=== PATIENT | female | born 1955 | race Caucasian/White ===

== ENCOUNTER 2020-07-08 10:26 | Outpatient (REF) | payer BC, SELFPAY | END 2020-07-08 10:27 | disposition home or self-care (01) | LOC: HO.LAB 10:26 | PROVIDERS: Visit Provider Nurse Practitioner Family | DX: Z20.828 Contact with and (suspected) exposure to other viral communicable diseases (principal); R53.83 Other fatigue; R51.9 Headache, unspecified | CPT/HCPCS: U0003 ==

== ENCOUNTER 2020-09-05 09:48 | Outpatient (REF) | payer BC, SELFPAY ==
[2020-09-05 11:12] LABS: Alanine Aminotransferase 22 U/L (0-31); Anion Gap 10 (12-20); Aspartate Amino Transferase 24 U/L (5-31); Blood Urea Nitrogen 10 mg/dL (9-16); Calcium 9.3 mg/dL (8.4-10.2); Carbon Dioxide 31 mmol/L (22-29); Chloride 105 mmol/L (96-108); Cholesterol 234 mg/dL; Estimated Glomerular Filt Rate > 60; Glucose Fasting 94 mg/dL (60-99); HDL Cholesterol 57 mg/dL; LDL Cholesterol Calculated 144 mg/dl; Potassium 4.2 mmol/L (3.3-5.1); Sodium 142 mmol/L (135-145); Triglycerides 168 mg/dL
[2020-09-05 11:28] LABS: Thyroid Stimulating Hormone 18.19 uIU/mL (0.32-4.0); Vitamin D 25-OH Total 36.5 ng/mL (>30)
[2020-09-07 17:32] LABS: Thyroid Peroxidase Antibodies 627 IU/mL (<9)
== END 2020-09-05 09:49 | disposition home or self-care (01) ==
LOC: HO.LAB 09:48
PROVIDERS: PCP Internal Medicine; Visit Provider Internal Medicine
DX: E03.9 Hypothyroidism, unspecified (principal); E78.5 Hyperlipidemia, unspecified; I10 Essential (primary) hypertension; Z78.0 Asymptomatic menopausal state
CPT/HCPCS: 36415; 80048; 80061; 82306; 84439; 84443; 84450; 84460; 86376

== ENCOUNTER 2020-09-08 14:11 | Outpatient (REF) | payer BC, SELFPAY ==
[2020-09-11 05:02] LABS: HPV mRNA E6/E7 rflx Not Detected (Not Detected)
== END 2020-09-08 14:12 | disposition home or self-care (01) ==
LOC: HO.LNP 14:11
PROVIDERS: Visit Provider Internal Medicine
DX: Z12.4 Encounter for screening for malignant neoplasm of cervix (principal); Z11.51 Encounter for screening for human papillomavirus (HPV)
CPT/HCPCS: 87624; 88142

== ENCOUNTER 2020-09-14 16:00 | Emergency (ER) | payer BC, SELFPAY ==
[2020-09-14 16:09] VITALS: BP 145/82; PULSE 91; RESP 18; TEMP 36.4; O2SAT 98; BMI 26.3
== END 2020-09-14 19:54 | disposition left against medical advice (07) ==
PROVIDERS: Emergency Provider Emergency Medicine; PCP Internal Medicine
DX: S09.90XA Unspecified injury of head, initial encounter (principal); W00.0XXA Fall on same level due to ice and snow, initial encounter; Y93.01 Activity, walking, marching and hiking; Y92.014 Private driveway to single-family (private) house as the place of occurrence of the external cause; Y99.9 Unspecified external cause status
CPT/HCPCS: 99282; 99283

== ENCOUNTER → 2020-10-28 12:43 | Outpatient (BNVA) | payer BC, SELFPAY | PROVIDERS: PCP Internal Medicine; Visit Provider Physician Assistant ==

== ENCOUNTER 2020-11-21 10:39 | Outpatient (REF) | payer BC, SELFPAY ==
--- NOTE | ~2020-11-21 | MM_ITS ---
EXAMINATION: MM SCREENING DIGITAL BREAST TOMOSYNTHESIS, BILATERAL CLINICAL INFORMATION: Screening. Asymptomatic. The lifetime risk of breast cancer based on the Tyrer-Cuzick Model is 15%. COMPARISON: Mammography: 09/23/2017, 04/30/2016, 04/04/2015, 08/26/2013 TECHNIQUE: Digital breast tomosynthesis is performed in both the craniocaudal and mediolateral oblique views along with computer-aided detection (CAD). Synthesized 2D images are generated from the tomosynthesis. FINDINGS: There are scattered areas of fibroglandular density (ACR BI-RADS breast composition Category b). Right breast parenchymal pattern is similar to prior studies. No developing density or interval mass or architectural abnormality. The breast shows abnormal calcifications. The axilla and skin contours are unremarkable. Left breast has scattered asymmetries central and posterior upper breast on MLO view and posterior outer breast on CC view. This may represent shifting fibroglandular densities or summation artifact. Patient will be recalled for additional imaging. MM/MM tomosynthesis screening BI IMPRESSION: 1. Left: Asymmetric density central and posterior outer breast, possibly shifting fibroglandular densities or summation artifact. 2. Right: No mammographic evidence of malignancy. ASSESSMENT: BI-RADS 0: Incomplete - Need Additional Imaging Evaluation RECOMMENDATION: 1. Additional views of the left breast (3D spot CC exaggerated CC; 3D spot MLO x 2). 2. Targeted ultrasound if warranted after review of the additional views. 3. Radiology department staff will contact the patient for additional imaging. This patient's information was entered into a reminder system with a target due date for their next mammogram.
== END 2020-11-21 10:40 | disposition home or self-care (01) ==
LOC: HO.MAMMO 10:39
PROVIDERS: Visit Provider Internal Medicine
DX: Z12.31 Encounter for screening mammogram for malignant neoplasm of breast (principal)
CPT/HCPCS: 77063; 77067

== ENCOUNTER 2020-12-04 13:11 | Outpatient (REF) | payer BC, SELFPAY ==
--- NOTE | ~2020-12-04 | MM_ITS ---
EXAMINATION: MM DIAGNOSTIC DIGITAL BREAST TOMOSYNTHESIS, LEFT US BREAST TARGETED, LEFT CLINICAL INFORMATION: Left breast density. COMPARISON: Mammography: 11/21/2020 and studies dating back to June 25. TECHNIQUE: Digital breast tomosynthesis is performed. 2-D images are generated from the tomosynthesis. The following views are obtained: Spot compression craniocaudal and mediolateral oblique images. Targeted left breast ultrasound upper outer aspect. Exaggerated craniocaudal view. FINDINGS: There are scattered areas of fibroglandular density (ACR BI-RADS breast composition Category b). There is persistence of an approximately 7 x 7 mm density without associated suspicious microcalcifications about the upper outer aspect of the left breast. Targeted left breast ultrasound demonstrated at the 2 o'clock position, 7 cm from the nipple, a hypoechoic solid lesion without internal vascularity. Lesion is wider than it is tall. Recommend ultrasound-guided core biopsy. Results are discussed with the patient at time of visit. The above recommendation was called to referring provider's office by breast center navigator. MM/MM tomosynthesis added views L IMPRESSION: Indeterminate solid left breast lesion upper outer aspect for which ultrasound-guided core biopsy is recommended. ASSESSMENT: BI-RADS 4: Suspicious RECOMMENDATION: Ultrasound-guided core biopsy left breast lesion. This patient's information was entered into a reminder system with a target due date for their next mammogram.
--- NOTE | ~2020-12-04 | US_ITS ---
EXAMINATION: US DIAGNOSTIC ULTRASOUND BREAST, LEFT CLINICAL INFORMATION: Left breast density upper outer aspect. COMPARISON: Mammography of same day and studies dating back to August 26, 2013. TECHNIQUE: Ultrasound of the breast is performed with real-time espino scale imaging and color Doppler. FINDINGS: Targeted left breast ultrasound demonstrated at the 2:00 position 7 cm from the nipple a hypoechoic solid lesion without internal vascularity. Lesion is wider than it is tall. Recommend ultrasound-guided core biopsy. Results are discussed with the patient at time of visit. The above recommendation was called to referring provider's office by breast center navigator. US/US breast LT limited IMPRESSION: Indeterminate solid left breast lesion upper outer aspect for which ultrasound-guided core biopsy is recommended. ASSESSMENT: BI-RADS 4: Suspicious RECOMMENDATION: Ultrasound-guided core biopsy left breast lesion
== END 2020-12-04 13:12 | disposition home or self-care (01) ==
LOC: HO.MAMMO 13:11
PROVIDERS: Visit Provider Internal Medicine
DX: R92.2 Inconclusive mammogram (principal)
CPT/HCPCS: 76642; 77061; 77065

== ENCOUNTER 2020-12-16 09:27 | Outpatient (REF) | payer BC, SELFPAY ==
--- NOTE | ~2020-12-16 | MM_ITS ---
EXAMINATION: ULTRASOUND GUIDED CORE BIOPSY BREAST, LEFT POST PROCEDURE DIGITAL MAMMOGRAM, LEFT CLINICAL INFORMATION: Macrolobulated nodule upper outer left breast. Core biopsy recommended. Patient notes prior history benign left excisional biopsy upper outer left breast for calcifications. TC score 15%. COMPARISON: Mammography 11/21/2020, 12/04/2020, targeted left breast ultrasound 12/04/2020. FINDINGS: Proper informed consent is obtained from the patient after discussion of the procedure, potential risks and complications, and alternatives. Patient was given an opportunity for questions. The patient appeared to understand. The patient consented to the procedure and signed the consent form. GUIDANCE: Ultrasound-guided; aseptic technique. LESION: Macrolobulated hypoechoic nodule just under 1 cm posterior upper outer left breast. APPROACH: Oblique lateral medial. ANESTHESIA: 10 mL 1% lidocaine. DERMATOTOMY: Single skin ed dermatotomy performed. NEEDLE: 14-gauge Achieve core biopsy device with 13.5-gauge co-axial guide needle. CORES: 6. CLIP: HydroMARK; shape: butterfly. POST PROCEDURE UNILATERAL DIGITAL MAMMOGRAM: The post biopsy mammogram is performed in separate room using separate digital mammography equipment from the biopsy procedure. CC and ML views are obtained. There are scattered areas of fibroglandular density (breast composition category: b). The clip marker is in position. No gross hematoma. The patient tolerated the procedure well. No immediate complications. Home instructions reviewed with the patient. Final pathology results are pending. MM/MM diagnostic mammo unilat LT IMPRESSION: 1. Status post ultrasound-guided core biopsy left breast. 2. Clip placed: HydroMARK; shape: butterfly. 3. Pathology pending. An addendum report will be issued.
== END 2020-12-16 09:28 | disposition home or self-care (01) ==
LOC: HO.MAMMO 09:27
PROVIDERS: Visit Provider Surgery
DX: R92.8 Other abnormal and inconclusive findings on diagnostic imaging of breast (principal); Z79.899 Other long term (current) drug therapy; Z80.3 Family history of malignant neoplasm of breast
CPT/HCPCS: 19083; 77065; 88305

== ENCOUNTER 2021-09-11 08:56 | Outpatient (REF) | payer BC, SELFPAY ==
[2021-09-11 11:29] LABS: Alanine Aminotransferase 31 U/L (0-31); Anion Gap 10 (12-20); Aspartate Amino Transferase 26 U/L (5-31); Blood Urea Nitrogen 10 mg/dL (9-16); Calcium 9.6 mg/dL (8.4-10.2); Carbon Dioxide 30 mmol/L (22-29); Chloride 106 mmol/L (96-108); Cholesterol 232 mg/dL; Estimated Glomerular Filt Rate > 60; Glucose Fasting 96 mg/dL (60-99); HDL Cholesterol 52 mg/dL; LDL Cholesterol Calculated 157 mg/dl; Sodium 142 mmol/L (135-145); Triglycerides 117 mg/dL
[2021-09-11 11:51] LABS: Free T4 (Free Thyroxine) 0.97 ng/dL (0.71-1.85); Thyroid Stimulating Hormone 18.41 uIU/mL (0.32-4.0); Vitamin D 25-OH Total 31.4 ng/mL (>30)
== END 2021-09-11 08:57 | disposition home or self-care (01) ==
LOC: HO.HMGCLDS 08:56
PROVIDERS: Visit Provider Internal Medicine
DX: Z00.01 Encounter for general adult medical examination with abnormal findings (principal); E03.9 Hypothyroidism, unspecified; E78.5 Hyperlipidemia, unspecified; Z78.0 Asymptomatic menopausal state
CPT/HCPCS: 36415; 80048; 80061; 82306; 84439; 84443; 84450; 84460

== ENCOUNTER 2022-01-15 09:17 | Outpatient (REF) | payer BC, SELFPAY ==
[2022-01-15 11:49] LABS: Alanine Aminotransferase 27 U/L (0-31); Anion Gap 12 (12-20); Aspartate Amino Transferase 25 U/L (5-31); Blood Urea Nitrogen 11 mg/dL (9-16); Calcium 9.4 mg/dL (8.4-10.2); Carbon Dioxide 28 mmol/L (22-29); Chloride 106 mmol/L (96-108); Cholesterol 199 mg/dL; Estimated Glomerular Filt Rate > 60; Glucose Fasting 98 mg/dL (60-99); HDL Cholesterol 58 mg/dL; LDL Cholesterol Calculated 123 mg/dl; Sodium 142 mmol/L (135-145); Triglycerides 93 mg/dL
[2022-01-15 12:14] LABS: Free T4 (Free Thyroxine) 0.93 ng/dL (0.71-1.85); Thyroid Stimulating Hormone 23.27 uIU/mL (0.32-4.0); Vitamin D 25-OH Total 36.4 ng/mL (>30)
== END 2022-01-15 09:18 | disposition home or self-care (01) ==
LOC: HO.HMGCLDS 09:17
PROVIDERS: PCP Internal Medicine; Visit Provider Internal Medicine
DX: E78.5 Hyperlipidemia, unspecified (principal); E03.9 Hypothyroidism, unspecified; Z78.0 Asymptomatic menopausal state
CPT/HCPCS: 36415; 80048; 80061; 82306; 84439; 84443; 84450; 84460

== ENCOUNTER 2022-04-02 08:28 | Outpatient (REF) | payer BC, SELFPAY ==
--- NOTE | ~2022-04-02 | MM_ITS ---
EXAMINATION: MM SCREENING DIGITAL BREAST TOMOSYNTHESIS, BILATERAL CLINICAL INFORMATION: Screening. Asymptomatic. Benign left ultrasound guided core biopsy 12/16/2020 (fibroadenoma, usual ductal hyperplasia. No atypia). The lifetime risk of breast cancer based on the Tyrer-Cuzick Model is 17%. COMPARISON: Mammography: 12/16/2020, 12/04/2020, 11/21/2020, 09/23/2017. Ultrasound core biopsy 12/16/2020, targeted left breast ultrasound 12/04/2020 TECHNIQUE: Digital breast tomosynthesis is performed in both the craniocaudal and mediolateral oblique views along with computer-aided detection (CAD). Synthesized 2D images are generated from the tomosynthesis. FINDINGS: There are scattered areas of fibroglandular density (ACR BI-RADS breast composition Category b). There is biopsy clip marker overlying fibroadenoma posterior upper outer left breast. Some tightly arranged punctate calcifications central left breast are now slightly coarser, likely additional fibroadenomas changes. The axilla and skin contours are unremarkable. No significant changes. MM/MM tomosynthesis screening BI IMPRESSION: No mammographic evidence of malignancy. ASSESSMENT: BI-RADS 2: Benign RECOMMENDATION: Routine annual mammography screening. This patient's information was entered into a reminder system with a target due date for their next mammogram.
== END 2022-04-02 08:29 | disposition home or self-care (01) ==
LOC: HO.MAMMO 08:28
PROVIDERS: Visit Provider Internal Medicine
DX: Z12.31 Encounter for screening mammogram for malignant neoplasm of breast (principal)
CPT/HCPCS: 77063; 77067

== ENCOUNTER 2022-09-03 10:52 | Outpatient (REF) | payer BC, SELFPAY ==
[2022-09-03 14:35] LABS: Free T4 (Free Thyroxine) 0.87 ng/dL (0.71-1.85); Thyroid Stimulating Hormone 15.97 uIU/mL (0.32-4.0)
== END 2022-09-03 10:53 | disposition home or self-care (01) ==
LOC: HO.HMGCLDS 10:52
PROVIDERS: PCP Internal Medicine; Visit Provider Internal Medicine
DX: E03.9 Hypothyroidism, unspecified (principal)
CPT/HCPCS: 36415; 84439; 84443

== ENCOUNTER 2022-09-16 10:26 | Outpatient (AMB) | payer BC, SELFPAY ==
--- NOTE | 2022-09-16 10:53 | MHC.PC.OV ---
Vital Signs 09/16/22 11:19 Height 5 ft 6.5 in Weight 158 lb 4 oz BMI 25.1 BP 120/82 Blood Pressure Location Lt brachial Position Sitting Pulse 93 Pulse Source Pulse Oximeter Pulse Oximetry (%) 99 Oxygen Delivery Method Room Air Intake Visit Reasons: Annual PE, overdue for colonoscopy Intake Note: Pt is here today for her PE: also pt need refills on levothyroxine lovastatin to [facility] Allergies azithromycin [From ZITHROMAX] Allergy (Unknown, Verified 09/20/23 02:57) HIVES, severe hives pravastatin Allergy (Unknown, Verified 09/20/23 02:57) hives atorvastatin Adverse Reaction (Unknown, Verified 09/20/23 02:57) muscle cramps Medication List - Last Reconciled 09/16/22 by Arely Lieberman MD acetaminophen ER (Tylenol 8 Hour) 650 mg PO Q12H aspirin (Adult Low Dose Aspirin) 81 mg PO DAILY fexofenadine (Wal-[employer]ex Allergy) 60 mg PO Q12H levothyroxine 88 mcg PO DAILY lovastatin 20 mg PO BEDTIME multivitamin (Daily Multi-Vitamin tablet) 1 tab PO DAILY [Vitamin D3 PO DAILY] Tobacco use date assessed: 09/09/21 HPI Annual PE, overdue for colonoscopy HPI Details 66-year-old lady here today for physical exam. She has acquired hypothyroidism currently on levothyroxine with latest TSH elevated and free T4 within normal limits. Currently feels more tired than usual. She is up-to-date with her screening mammogram, last done 03/2022 , and is due for a screening colonoscopy, last done in 2011 . She however does not want to get procedure done , wants to do Cologuard test . 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 Has recurrent pain and stiffness in both shoulders , knees , fingers Laboratory Tests 09/03/22 11:14 TSH 15.97 H Free T4 0.87 PFSH Medical History (Updated 09/20/23 @ 03:19 by Arely Lieberman MD) Polyarthralgia Varicose veins of both lower extremities with pain Shingles rash Family history of breast cancer Acromioclavicular pain Postmenopause Colon cancer screening Dyslipidemia Acquired hypothyroidism Periorbital cellulitis Surgical History H/O colonoscopy History of breast biopsy Hx of cholecystectomy History of appendectomy Family History Father Chronic heart disease COPD (chronic obstructive pulmonary disease) Restrictive lung disease Afib CAD (coronary artery disease) Diabetes mellitus Mother Type 2 diabetes mellitus Arthritis Breast cancer Cervical cancer Glaucoma CAD (coronary artery disease) Brother Parkinson disease Sister Non Hodgkin's lymphoma Uterine cancer, Onset Age: 56 Sister No problems noted. Daughter No problems noted. Daughter No problems noted. Sister Breast cancer Social History Household Members: None Housing Other:: mobile home Alcohol intake: current Alcohol intake frequency: holidays/special occasions only Patient Tobacco Use Status: Never used Tobacco e-Cigarette/Vaping Use: Never Used service: No Current occupational status: employed Female Reproductive History Menstrual Age of Menarche: 13 Date of last pap smear: 09/08/20 Questionnaire PHQ-9 Over the last 2 weeks, how often have you been bothered by any of the following problems? 1. Little interest or pleasure in doing things: not at all 2. Feeling down, depressed, or hopeless: not at all 3. Trouble falling or staying asleep, or sleeping too much: more than half the days 4. Feeling tired or having little energy: nearly every day 5. Poor appetite or overeating: not at all 6. Feeling bad about yourself - or that you are a failure or have let yourself or your family down: not at all 7. Trouble concentrating on things, such as reading the newspaper or watching television: not at all 8. Moving or speaking so slowly that other people could have noticed. Or the opposite - being so fidgety or restless that you have been moving around a lot more than usual: not at all 9. Thoughts that you would be better off or of hurting yourself in some way: not at all Total score: 5 Depression Screening Interpretation: Negative 18992 - PHQ-9 Billing: Yes Source: Developed by Drs. Sky Waterman, Elsa Arevalo, Harinder William and colleagues, with an educational yajaira from [employer]. Thrive Questionnaire Declines Thrive assessment: No Date Thrive assessed: 09/16/22 I am a: Patient What is your living situation today?: I have a steady place to live Within the past 12 months, did the food you bought not last and you didn't have the money to get more?: Never true Within the past 12 months, did you worry whether your food would run out before you got money to buy more?: Never true Do you have trouble paying for medicines?: No Do you have trouble getting transportation to medical appointments?: Yes Do you have trouble paying your heating and electricity bill?: Yes Do you have trouble taking care of your child, family member or friend?: No Do you have trouble with day-to-day activities such as bathing, preparing meals, shopping, managing finances, etc.?: No Are you currently unemployed and looking for a job?: No Are you interested in more education?: No AUDIT C Alcohol Use Questionnaire (AUDIT-C) 1. How often do you have a drink containing alcohol?: Never Total Score: 0 JIM-7 AMB Questionnaire JIM-7 Date JIM - 7 assessed: 09/16/22 Feeling nervous, anxious, or on edge: 2 = More than half the days Not being able to stop or control worryin = Not at all Worrying too much about different things: 0 = Not at all Trouble relaxin = Several days Being so restless that it is hard to sit still: 0 = Not at all Becoming easily annoyed or irritable: 1 = Several days Feeling afraid as if something awful might happen: 0 = Not at all Total JIM-7 score (0-4 normal; 5-9 mild; 10-14 moderate; 15-21 severe): 4 Source: Developed by Drs. Sky Waterman, Elsa Arevalo, Harinder William and colleagues, with an educational yajaira from [employer]. JIM-7 Assessment Billing JIM-7 Assessment Tool: JIM-7 Assessment 12583 Review of Systems Const Denies fatigue, Denies fever(s), Denies headache(s) and Denies weakness Eyes Denies change in vision, Denies eye discharge and Denies itchy eyes ENT Denies dizziness, Denies headache(s), Denies nasal congestion, Denies nasal discharge and Denies sore throat Card Denies chest pain, Denies lightheadedness, Denies palpitations and Denies dyspnea Resp Denies chest congestion, Denies cough, Denies dyspnea and Denies wheezing GI Denies abdominal pain, Denies change in bowel habits and Denies heartburn Denies urinary frequency, Denies dysuria and Denies urinary urgency Musc Reports as per HPI and Denies joint swelling Skin/Breast Denies lesions and Denies rash Neuro Denies dizziness, Denies headache(s) and Denies weakness Psych Reports no additional complaints Endo Denies fatigue, Denies polydipsia, Denies polyuria and Denies palpitations Dick/Lymph Denies easy bruising Aller/Immun Denies itchy eyes, Denies seasonal rhinorrhea and Denies wheezing Physical exam (Primary Care) Vital Signs: Last Vital Signs Pulse 93 09/16/22 11:19 BP 120/82 09/16/22 11:19 Pulse Ox 99 09/16/22 11:19 Oxygen Delivery Method Room Air 09/16/22 11:19 BMI result Body Mass Index 25.1 Tobacco/Smoking Status: Tobacco use Status Tobacco use date assessed 09/09/21 09/16/22 10:55 Patient Tobacco Use Status Never used Tobacco 09/16/22 10:55 e-Cigarette/Vaping Use Never Used 09/16/22 10:55 PHQ-9: PHQ-9 Score PHQ-9: Total score 7 09/16/22 12:24 Depression Screening Interpretation: Negative Thrive Assessment: Date of Thrive Assessment Date Thrive assessed 09/16/22 09/16/22 11:21 Const General: cooperative, healthy appearing and no acute distress Nutritional Appearance: average body habitus Orientation/consciousness: patient oriented x3 Limitations: no limitations HENMT Head: Yes atraumatic Ears: external ears normal and TM's normal bilaterally General nose exam: Normal external nose present and No nasal discharge present Face and sinus: Yes face symmetric Mouth: Normal oral and palatal mucosa present, oropharynx normal and moist mucous membranes Eyes General: appearance normal, both eyes and all related structures Neck Neck: Yes full ROM, Yes no lymphadenopathy and Yes supple Chest Breast/axilla inspection: normal inspection of the breasts Breast/axilla palpation: normal palpation of the breasts Resp Effort & Inspection: normal respiratory effort and able to speak in complete sentences Auscultation: clear to auscultation bilaterally Cardio Palpation: normal PMI Rate: regular rate Rhythm: regular rhythm Heart sounds: S1 normal heart sound present and S2 normal heart sound present GI Inspection: Yes normal to inspection Palpation (GI): Soft to palpation, nontender and no guarding Auscultation: normal bowel sounds Back/Spine/Pelvis Back: No back tenderness Skin Other: Superficial varicosities on lateral aspects of both knees Neuro General: patient oriented x3, gait normal, moves all extremities, Normal light touch and pain sensation, no focal motor deficits and CN's II-XI intact bilaterally Extrem General: Yes full ROM, Yes no joint enlargement, Yes no calf tenderness and Yes normal gait Psych Appearance: grossly normal and well kempt Mental Status: mental status grossly normal Speech and movement: Normal speech and movement present Affect: normal affect Attitude: cooperative Thought process: Normal thought process present Thought content: Normal thought content present Immunizations pneumoc 20-malcolm conj-dip cr(PF) 0.5 mL IM syringe Performing Provider: Arely Lieberman MD Performing Location: [facility] Administered by: Aniya Alex CMA on 09/16/22 12:23 Dose Route Admin Location Dispensed Lot Number Expiration Date NDC Administrative Operations Coordinator 0.5 mL IM Left Deltoid 0.5 mL [id number] 11/21/23 7653-8772-52 [employer] VIS Given Date VIS Provided VIS Publication Date 09/16/22 Single Vaccine 21 Eligibility Eligibility Date Funding Source Not [facility] Eligible 09/16/22 Private Assessment and Plan Assessment & Plan (1) Annual visit for general adult medical examination with abnormal findings: Code(s): Z00.01 - Encounter for general adult medical examination with abnormal findings Plan: Will check appropriate labs. Recommended dental visit every 6 months and regular eye exams, at least every 2 years. Take adequate calcium in diet and vitamin-D 3 at 2000 IU per cap once a day, in addition to weight-bearing exercises to help maintain good muscle tone and weight control. Instructed to do self-breast exam, and recommended to continue with yearly mammogram,, bone density scan ordered.. Prevnar 20 given today (2) Acquired hypothyroidism: Code(s): E03.9 - Hypothyroidism, unspecified Plan: Increased dose of levothyroxine to 100 mcg daily. Repeat another TSH and free T4 in 2 month (3) Colon cancer screening: Code(s): Z12.11 - Encounter for screening for malignant neoplasm of colon Plan: Cologuard ordered, patient does not want to do colonoscopy procedure (4) Dyslipidemia: Code(s): E78.5 - Hyperlipidemia, unspecified Plan: Fasting lipid panel ordered, currently on lovastatin 20 mg daily at bedtime (5) Varicose veins of both lower extremities with pain: Code(s): I83.813 - Varicose veins of bilateral lower extremities with pain Plan: Referred to vascular surgery for consultation. Advised to try wearing compression stockings specially when not work (6) Polyarthralgia: Code(s): M25.50 - Pain in unspecified joint Plan: Take Tylenol arthritis 650 mg per tablet to take 1 every 8 hours as needed for joint pain (7) Family history of breast cancer: Comment: Her mother was diagnosed to have breast cancer at the age of 49. I am going to recommend her to undergo genetic testing. This will be discussed on her follow-up visit. Code(s): Z80.3 - Family history of malignant neoplasm of breast Plan: Continue with regular screening mammograms and regular breast exam. Orders: Orders Aspartate Amino Transferase 2 Months E78.5 - Hyperlipidemia, unspecified, E03.9 - Hypothyroidism, unspecified Free T4 (Free Thyroxine) 2 Months E03.9 - Hypothyroidism, unspecified, E78.5 - Hyperlipidemia, unspecified XR DEXA axial skeleton 09/16/22 N95.1 - Menopausal and female climacteric states Alanine Aminotransferase 2 Months E78.5 - Hyperlipidemia, unspecified, E03.9 - Hypothyroidism, unspecified Lipid Panel 2 Months E78.5 - Hyperlipidemia, unspecified, E03.9 - Hypothyroidism, unspecified Thyroid Stimulating Hormone 2 Months E78.5 - Hyperlipidemia, unspecified, E03.9 - Hypothyroidism, unspecified Pneumococcal 20 Immunization 09/16/22 Z23 - Encounter for immunization Referrals Vascular Surgery Referral I83.813 - Varicose veins of bilateral lower extremities with pain Medications: Changed From levothyroxine 88 mcg PO DAILY 30 tabs 0RF E03.9 - Hypothyroidism, unspecified To levothyroxine 100 mcg PO DAILY 90 tabs 1RF 90 days E03.9 - Hypothyroidism, unspecified Coding Level of Care Code Est Pt Prev Care >65y(92685) Diagnoses Annual visit for general adult medical examination with abnormal findings Z00.01 Acquired hypothyroidism E03.9 Colon cancer screening Z12.11 Dyslipidemia E78.5 Varicose veins of both lower extremities with pain I83.813 Polyarthralgia M25.50 Family history of breast cancer Z80.3 Additional Codes JIM-7 Assessment Billing - JIM-7 Assessment Tool: JIM-7 Assessment 31904 ([id number])
[2022-09-16 11:19] VITALS: BP 120/82; PULSE 93; O2SAT 99; BMI 25.1
== END 2022-09-16 12:27 | disposition home or self-care (01) ==
LOC: HO.HMGC 10:27
PROVIDERS: PCP Internal Medicine; Visit Provider Internal Medicine
DX: Z00.01 Encounter for general adult medical examination with abnormal findings (principal); E03.9 Hypothyroidism, unspecified; Z12.11 Encounter for screening for malignant neoplasm of colon; E78.5 Hyperlipidemia, unspecified; I83.813 Varicose veins of bilateral lower extremities with pain; M25.50 Pain in unspecified joint; Z80.3 Family history of malignant neoplasm of breast
CPT/HCPCS: 99499

== ENCOUNTER → 2022-11-22 14:56 | Outpatient (BNVA) | payer BC, SELFPAY | PROVIDERS: PCP Internal Medicine; Visit Provider Surgery Vascular Surgery | DX: Z13.89 Encounter for screening for other disorder (principal) ==

== ENCOUNTER 2022-12-06 12:55 | Outpatient (REF) | payer BC, SELFPAY ==
--- NOTE | ~2022-12-06 | US_ITS ---
EXAMINATION: US LOWER EXTREMITY VENOUS (REFLUX EXAM), BILATERAL CLINICAL INDICATION: Chronic venous insufficiency with lower extremity varicose veins and inflammation COMPARISON: None. TECHNIQUE: Color flow triplex imaging and compression Doppler was performed to evaluate both the deep and the superficial systems bilaterally. To evaluate the superficial system, the examination was performed in the upright position. Color-flow Doppler ultrasound and compression ultrasound were utilized. In addition, maneuvers were utilized to demonstrate reflux. FINDINGS: 1. DEEP VENOUS ULTRASOUND OF THE RIGHT LOWER EXTREMITY: Common Femoral Vein: Compressible, normal respiratory variation and augmented flow. Femoral Vein: Compressible, normal color flow and augmentation. Popliteal Vein: Compressible, normal augmentation. Deep Reflux: There is no evidence of reflux in the deep system in either the common femoral vein or the popliteal vein. There is no evidence of a Reed's cyst. 2. SUPERFICIAL ULTRASOUND WITH DOPPLER OF RIGHT LOWER EXTREMITY: GREAT SAPHENOUS VEIN: Saphenofemoral Junction: 0.6 cm; Reflux: 0 ms Proximal Thigh: 0.4 cm; Reflux: 0 ms Mid Thigh: 0.2 cm; Reflux: 0 ms Above Knee: 0.2 cm; Reflux: 0 ms At Knee: 0.2 cm; Reflux: 0 ms Below Knee: 0.2 cm; Reflux: 716 ms Mid Calf: 0.2 cm; Reflux: 0 ms Ankle: 0.2 cm; Reflux: 0 ms DUPLICATED MEDIAL GREAT SAPHENOUS VEIN: Diameter: None Imaged Reflux: NA DUPLICATED LATERAL GREAT SAPHENOUS VEIN: Diameter: 0.4 cm Reflux: None SMALL SAPHENOUS VEIN: Proximal: 0.5 cm; Reflux: 2140 ms Distal: 0.5 cm; Reflux: 2404 ms VEIN OF GIACOMINI: Size: NA Reflux: NA PERFORATORS: Location: Mid thigh, proximal calf and mid calf Size: 0.2 cm Reflux: 1020 ms in the midcalf VARICOSITIES: Location: Proximal and mid calf off the small saphenous vein, lateral of the knee Size: 0.4 cm Reflux: Ranging from 2332 ms to 2496 ms 3. DEEP VENOUS ULTRASOUND OF THE LEFT LOWER EXTREMITY: Common Femoral Vein: Compressible, normal respiratory variation and augmented flow. Femoral Vein: Compressible, normal color flow and augmentation. Popliteal Vein: Compressible, normal augmentation. Deep Reflux: There is no evidence of reflux in the deep system in either the common femoral vein or the popliteal vein. There is no evidence of a Reed's cyst. 4. SUPERFICIAL ULTRASOUND WITH DOPPLER OF LEFT LOWER EXTREMITY: GREAT SAPHENOUS VEIN: Saphenofemoral Junction: 0.6 cm; Reflux: 0 ms Proximal Thigh: 0.7 cm; Reflux: 0 ms Mid Thigh: 0.2 cm; Reflux: 0 ms Above Knee: Not visualized At Knee: 0.5 cm; Reflux: 2536 ms Below Knee: 0.5 cm; Reflux: 2776 ms Mid Calf: 0.3 cm; Reflux: 2464 ms Ankle: 0.3 cm; Reflux: 0 ms DUPLICATED MEDIAL GREAT SAPHENOUS VEIN: Diameter: None Imaged Reflux: NA DUPLICATED LATERAL GREAT SAPHENOUS VEIN: Diameter: None Imaged Reflux: NA SMALL SAPHENOUS VEIN: Proximal: 0.5 cm; Reflux: 2108 ms Distal: 0.3 cm; Reflux: 2264 ms VEIN OF GIACOMINI: Size: NA Reflux: NA PERFORATORS: Location: Proximal thigh to the great saphenous vein Size: 0.2 cm Reflux: 1624 ms VARICOSITIES: Location: Mid thigh off the great saphenous vein extending from the proximal great saphenous vein to below the knee Size: 0.9 cm Reflux: 2228 ms US/US venous duplex LE BI IMPRESSION: Right: Severe reflux in the small saphenous vein with multiple branching varicosities. Left: Severe reflux in the great saphenous vein with large branching varicosities as described above. Severe reflux in the small saphenous vein
[2022-12-06 16:50] LABS: Alanine Aminotransferase 33 U/L (0-31); Aspartate Amino Transferase 26 U/L (5-31); Cholesterol 194 mg/dL; HDL Cholesterol 59 mg/dL; LDL Cholesterol Calculated 115 mg/dl; Triglycerides 100 mg/dL
[2022-12-06 17:22] LABS: Free T4 (Free Thyroxine) 1.13 ng/dL (0.71-1.85); Thyroid Stimulating Hormone 4.18 uIU/mL (0.32-4.0)
== END 2022-12-06 12:56 | disposition home or self-care (01) ==
LOC: HO.US 12:55
PROVIDERS: PCP Internal Medicine; Visit Provider Surgery Vascular Surgery
DX: I83.11 Varicose veins of right lower extremity with inflammation (principal); E03.9 Hypothyroidism, unspecified; E78.5 Hyperlipidemia, unspecified
CPT/HCPCS: 36415; 80061; 84439; 84443; 84450; 84460; 93970

== ENCOUNTER 2023-04-22 10:45 | Outpatient (REF) | payer BC, SELFPAY ==
[2023-04-22 12:15] LABS: Free T4 (Free Thyroxine) 1.07 ng/dL (0.71-1.85); Thyroid Stimulating Hormone 5.69 uIU/mL (0.32-4.0)
== END 2023-04-22 10:46 | disposition home or self-care (01) ==
LOC: HO.LAB 10:45
PROVIDERS: PCP Internal Medicine; Visit Provider Internal Medicine
DX: E03.9 Hypothyroidism, unspecified (principal)
CPT/HCPCS: 36415; 84439; 84443

== ENCOUNTER 2023-05-05 13:40 | Outpatient (REF) | payer BC, SELFPAY ==
--- NOTE | ~2023-05-05 | MM_ITS ---
EXAMINATION: BONE DENSITOMETRY CLINICAL INDICATION: Menopausal and female climacteric states. COMPARISON: Baseline BD dated 06/27/2008. TECHNIQUE: Using a [employer] DXA System (software version: 13.1) manufactured by [employer], dual-energy x-ray absorptiometry was performed of the lumbar spine and left hip. The images are of good technical quality. Summary results are attached. FINDINGS: AP SPINE L1-L4: Current: BMD 1.098 g/cm2, Z-score 0.6, T-score -0.7, normal, 0.9% increase from baseline (<5% change is not significant). Baseline: BMD 1.088 g/cm2. LEFT FEMUR, NECK: Current: BMD 1.030 g/cm2, Z-score 1.3, T-score -0.1, normal. Baseline: BMD 1.077 g/cm2. LEFT FEMUR, TOTAL: Current: BMD 1.097 g/cm2, Z-score 1.7, T-score 0.7, normal, 3.4% decrease from baseline (<5% change is not significant). Baseline: BMD 1.136 g/cm2. IDENTIFIED RISK FACTORS: Low calcium intake. Menopause. HISTORY OF FRACTURE: None listed. MEDICATIONS: Vitamin D. MM/XR DEXA axial skeleton IMPRESSION: 1. DIAGNOSIS: Normal bone density based on the lowest T-score value of -0.7 in the lumbar spine applying World Health Organization criteria. 2. 10-YEAR FRACTURE RISK PREDICTION, FRAX: According to the guidelines, FRAX calculation should only be performed on patients in the osteopenia bone density category.?Therefore, FRAX was not performed on this patient.? 3. Treatment Recommendations: NOF guidelines recommend consideration for treatment in postmenopausal women and men age 50 and older presenting with the following: -A hip or vertebral (clinical or morphometric) fracture. -T-score less than or equal to -2.5 at the femoral neck or spine after appropriate evaluation to exclude secondary causes. -Low bone mass at the hip or spine and a 10-year fracture probability by FRAX of greater than or equal to 3% for hip fracture or greater than or equal to 20% for major osteoporotic fracture based on the [place] adapted WHO algorithm. 4. Other Recommendations: All treatment decisions require clinical judgment and consideration of individual patient factors, including patient preferences, comorbidities, previous drug use, risk factors not captured in the FRAX model (e.g. frailty, falls, vitamin D deficiency, increased bone turnover, interval significant decline in bone density) and possible under or overestimation of fracture risk by FRAX. FUTURE SCAN RECOMMENDATION: People with diagnosed cases of osteoporosis or at high risk for fracture should have regular bone mineral density tests. For patients eligible for Medicare, routine testing is allowed once every 2 years. The testing frequency can be increased to one year for patients who have rapidly progressing disease, those who are receiving or discontinuing medical therapy to restore bone mass, or have additional risk factors.
--- NOTE | ~2023-05-05 | MM_ITS ---
EXAMINATION: MM SCREENING DIGITAL BREAST TOMOSYNTHESIS, BILATERAL CLINICAL INFORMATION: Screening. Asymptomatic. COMPARISON: Mammography: This study is compared with prior exams dating back to 2018. TECHNIQUE: Digital breast tomosynthesis is performed in both the craniocaudal and mediolateral oblique views along with computer-aided detection (CAD). Synthesized 2D images are generated from the tomosynthesis. FINDINGS: There are scattered areas of fibroglandular density (ACR BI-RADS breast composition Category b). There are grouped calcifications in the 6:00 region of the left breast. Additional mammographic imaging magnification of this region is advised. There is a tissue marker in the superior aspect of the left breast from prior percutaneous biopsy. In the right breast, there are no significant masses, abnormal calcifications, or other abnormalities. MM/MM tomosynthesis screening BI IMPRESSION: Groups calcifications of the left breast warrants additional mammographic imaging magnification. Benign findings are also present in the left breast. No mammographic signs of malignancy right breast. ASSESSMENT: BI-RADS BI-RADS 0 - Incomplete: Needs additional Imaging. RECOMMENDATION: Additional views of the left breast Radiology department staff will contact the patient for additional imaging. Additional Imaging required This examination should not preclude the clinical evaluation of a suspicious palpable abnormality. This patient's information was entered into a reminder system with a target due date for their next mammogram.
== END 2023-05-05 13:41 | disposition home or self-care (01) ==
LOC: HO.MAMMO 13:40
PROVIDERS: PCP Internal Medicine; Visit Provider Internal Medicine
DX: Z12.31 Encounter for screening mammogram for malignant neoplasm of breast (principal); Z13.820 Encounter for screening for osteoporosis; Z78.0 Asymptomatic menopausal state
CPT/HCPCS: 77063; 77067; 77080

== ENCOUNTER → 2023-05-05 14:30 | Outpatient (BNV) | payer BC, SELFPAY | PROVIDERS: PCP Internal Medicine; Visit Provider Radiology Diagnostic Radiology | DX: Z12.31 Encounter for screening mammogram for malignant neoplasm of breast (principal) | CPT/HCPCS: 77063; 77067 ==

== ENCOUNTER 2023-07-03 12:26 | Outpatient (REF) | payer BC, SELFPAY ==
--- NOTE | ~2023-07-03 | US_ITS ---
EXAMINATION: MM DIAGNOSTIC DIGITAL BREAST TOMOSYNTHESIS, LEFT US BREAST LIMITED, LEFT MAMMOGRAPHY: CLINICAL INFORMATION: Evaluate calcifications 6:00 axis left breast, posterior one third. Benign left ultrasound guided core biopsy 12/16/2020 (fibroadenoma, usual ductal hyperplasia. No atypia). COMPARISON: Mammography: 05/05/2023, 04/02/2022, 12/16/2020, 12/04/2020, 11/21/2020, 09/23/2017. Ultrasound core biopsy 12/16/2020, targeted left breast ultrasound 12/04/2020 TECHNIQUE: Digital left breast tomosynthesis is performed in the following views: Spot magnification left CC and ML views, as well as 3-D spot compression left CC and MLO views x2. This was followed by ultrasound. FINDINGS: There are scattered areas of fibroglandular density (ACR BI-RADS breast composition Category b). Calcifications in the 6:00 axis of the left breast have a coarse appearance with minimal pleomorphic changes, and are most likely benign. Six-month follow-up recommended. There is a 1.4 cm low density lobular mass versus island of dense parenchyma in the 11:30 o'clock axis of the anterior left breast, which persists on spot compression views, and which will be evaluated with ultrasound. There is a post benign biopsy marker in the lateral left breast posterior one third. ULTRASOUND: CLINICAL INFORMATION: Evaluate possible mass versus prominent island of parenchyma retroareolar 11:30 o'clock left breast. COMPARISON: None TECHNIQUE: Targeted sonographic evaluation was performed using a high frequency linear transducer. Attention paid to the anterior 11:30 o'clock axis of the left breast. Selected archived documentation. FINDINGS: LEFT BREAST: There is a mixture of fatty and fibroglandular tissue. No suspicious mass is seen. There is no pathologic acoustic shadowing. There is no cystic abnormality. There is no ultrasonographic abnormality in the region of concern in the anterior 11:30 o'clock mammogram. This most likely represents a normal island of tissue. US/US breast LT limited mamm only IMPRESSION: There are no findings suspicious for malignancy in the left breast. Small somewhat coarse grouped calcifications 6:00 left breast are probably benign and six-month follow-up recommended to ensure stability, to include standard magnification views. Prominent island of parenchyma in the 11:30 o'clock axis retroareolar left breast, which can be reevaluated at the time of repeat left spot magnification views. OVERALL ASSESSMENT: Mammography: BI-RADS 3 - Probably benign finding(s) - 6 month follow-up suggested Ultrasound: BI-RADS 3 - Probably benign finding(s) - 6 month follow-up suggested RECOMMENDATION: 6 Month F/U This patient's information was entered into a reminder system with a target due date for their next mammogram.
== END 2023-07-03 12:27 | disposition home or self-care (01) ==
LOC: HO.MAMMO 12:26
PROVIDERS: PCP Internal Medicine; Visit Provider Internal Medicine
DX: R92.1 Mammographic calcification found on diagnostic imaging of breast (principal); R92.2 Inconclusive mammogram
CPT/HCPCS: 76642; 77065

== ENCOUNTER → 2023-07-03 13:00 | Outpatient (BNV) | payer BC, SELFPAY | PROVIDERS: PCP Internal Medicine; Visit Provider Radiology Diagnostic Radiology | DX: R92.1 Mammographic calcification found on diagnostic imaging of breast (principal) | CPT/HCPCS: 76642; 77061; 77065 ==

== ENCOUNTER 2023-09-16 10:34 | Outpatient (REF) | payer BC, SELFPAY ==
[2023-09-16 14:27] LABS: Free T4 (Free Thyroxine) 1.06 ng/dL (0.71-1.85); Thyroid Stimulating Hormone 5.06 uIU/mL (0.32-4.0)
== END 2023-09-16 10:35 | disposition home or self-care (01) ==
LOC: HO.HMGCLDS 10:34
PROVIDERS: PCP Internal Medicine; Visit Provider Internal Medicine
DX: E03.9 Hypothyroidism, unspecified (principal)
CPT/HCPCS: 36415; 84439; 84443

== ENCOUNTER 2023-12-06 15:58 | Outpatient (REF) | payer SELFPAY ==
[2023-12-06 18:45] LABS: Free T4 (Free Thyroxine) 1.18 ng/dL (0.71-1.85); Thyroid Stimulating Hormone 3.72 uIU/mL (0.32-4.0)
== END 2023-12-06 15:59 | disposition home or self-care (01) ==
LOC: HO.LAB 15:58
PROVIDERS: PCP Internal Medicine; Visit Provider Internal Medicine
DX: E03.9 Hypothyroidism, unspecified (principal)
CPT/HCPCS: 36415; 84439; 84443

== ENCOUNTER 2024-01-10 10:09 | Outpatient (REF) | payer SELFPAY ==
--- NOTE | ~2024-01-10 | MM_ITS ---
EXAMINATION: MM DIAGNOSTIC DIGITAL BREAST TOMOSYNTHESIS, LEFT CLINICAL INFORMATION: 6 month Follow-up calcs and one view asymmetry 6:00 axis anterior left breast. Benign left ultrasound guided core biopsy 12/16/2020 (fibroadenoma, usual ductal hyperplasia. No atypia). COMPARISON: Mammography: 06/29/2023, 05/05/2023 (BI-RADS 0), 04/02/2022, 12/16/2020, 12/04/2020, 11/21/2020, 09/23/2017. Ultrasound core biopsy 12/16/2020, targeted left breast ultrasound 12/04/2020 TECHNIQUE: Digital breast tomosynthesis is performed in both the craniocaudal and mediolateral oblique views along with computer-aided detection (CAD). Synthesized 2D images are generated from the tomosynthesis. In addition, 2-D spot magnification views left breast in the CC and ML projection were obtained. FINDINGS: There are scattered areas of fibroglandular density (ACR BI-RADS breast composition Category b). Calcifications in the 6:00 axis of the left breast have a coarse appearance with no significant pleomorphic changes, with no new calcifications or aggressive changes. These remain most likely benign. Six-month follow-up diagnostic left breast mammography recommended. The 1.4 cm lobular asymmetry seen in the 11:30 axis of the anterior left breast best seen on the CC view is unchanged from prior exams. Previously this had no ultrasound correlate and is most likely an island of dense fibroglandular tissue. Six-month Follow-up left mammography recommended to ensure stability. No new abnormalities noted left breast. Post benign tissue marker noted in the lateral left breast posterior one third. MM/MM tomosynthesis diagnostic LT IMPRESSION: There are no findings suspicious for malignancy. There are no significant changes from the prior study. - Calcifications in the 6:00 axis of the left breast are unchanged and probably benign. Six-month interval follow-up magnification views recommended. -Lobular asymmetry in the 11:30 o'clock axis of the anterior left breast is also unchanged and probably benign. Six-month interval follow-up mammography with standard views are recommended. ASSESSMENT: BI-RADS BI-RADS 3 - Probably benign finding(s) - 6 month follow-up suggested RECOMMENDATION: 6 Month F/U This patient's information was entered into a reminder system with a target due date for their next mammogram.
[2024-01-10 13:53] LABS: Alanine Aminotransferase 23 U/L (0-31); Aspartate Amino Transferase 24 U/L (5-31); Cholesterol 198 mg/dL (<200); HDL Cholesterol 55 mg/dL (>40); LDL Cholesterol Calculated 123 mg/dL (<100); Triglycerides 101 mg/dL (<150)
[2024-01-10 14:09] LABS: Vitamin D 25-OH Total 51.1 ng/mL (>30)
== END 2024-01-10 10:10 | disposition home or self-care (01) ==
LOC: HO.MAMMO 10:09
PROVIDERS: PCP Internal Medicine; Visit Provider Internal Medicine
DX: E78.5 Hyperlipidemia, unspecified (principal); R92.1 Mammographic calcification found on diagnostic imaging of breast
CPT/HCPCS: 36415; 77061; 77065; 80061; 82306; 84450; 84460

== ENCOUNTER → 2024-01-10 13:30 | Outpatient (BNV) | payer SELFPAY | PROVIDERS: PCP Internal Medicine; Visit Provider Radiology Diagnostic Radiology | DX: R92.1 Mammographic calcification found on diagnostic imaging of breast (principal); N63.22 Unspecified lump in the left breast, upper inner quadrant | CPT/HCPCS: 77061; 77065 ==

== ENCOUNTER 2024-01-26 08:36 | Outpatient (AMB) | payer MEDICARE, SELFPAY ==
--- NOTE | 2024-01-26 09:37 | A.OFFPC_ITS ---
Intake Visit Reasons: TH test results-Android [phone] Allergies azithromycin [From ZITHROMAX] Allergy (Unknown, Verified 01/26/24 10:52) HIVES, severe hives pravastatin Allergy (Unknown, Verified 01/26/24 10:52) hives atorvastatin Adverse Reaction (Unknown, Verified 01/26/24 10:52) muscle cramps Medication List - Last Reconciled 01/26/24 by Arely Lieberman MD acetaminophen ER (Tylenol 8 Hour) 650 mg PO Q12H aspirin (Adult Low Dose Aspirin) 81 mg PO DAILY fexofenadine (Wal-Fex Allergy) 60 mg PO DAILY PRN levothyroxine 88 mcg PO DAILY lovastatin 20 mg PO BEDTIME multivitamin (Daily Multi-Vitamin tablet) 1 tab PO DAILY [Vitamin D3 PO DAILY] Tobacco use date assessed: 09/09/21 HPI TH test results-Android [phone] HPI Details 68-year-old lady with hyperlipidemia, an d hypothyroidism, here today for her follow-up via telehealth. She has been compliant with taking her medications, currently on lovastatin 20 mg at bedtime and levothyroxine 88 mcg taken once a day in a.m. an hour before breakfast. Recent fasting labs showed lipids and thyroid levels were within normal limits. Has been feeling well with no complaints at present time. Patient states that she is retired now and has been able to concentrate on her diet has been cooking a lot of for food and has been exercising regularly. FORMERLY [facility], [facility] Medical History (Updated 01/26/24 @ 10:59 by Arely Lieberman MD) History of shingles Polyarthralgia Varicose veins of both lower extremities with pain Family history of breast cancer Postmenopause Colon cancer screening Dyslipidemia Acquired hypothyroidism Periorbital cellulitis Surgical History H/O colonoscopy History of breast biopsy Hx of cholecystectomy History of appendectomy Family History Father Chronic heart disease COPD (chronic obstructive pulmonary disease) Restrictive lung disease Afib CAD (coronary artery disease) Diabetes mellitus Mother Type 2 diabetes mellitus Arthritis Breast cancer Cervical cancer Glaucoma CAD (coronary artery disease) Brother Parkinson disease Sister Non Hodgkin's lymphoma Uterine cancer, Onset Age: 56 Sister No problems noted. Daughter No problems noted. Daughter No problems noted. Sister Breast cancer Social History Household Members: None Housing Other:: mobile home Alcohol intake: current Alcohol intake frequency: holidays/special occasions only Patient Tobacco Use Status: Never used Tobacco e-Cigarette/Vaping Use: Never Used service: No Current occupational status: employed Female Reproductive History Menstrual Age of Menarche: 13 Questionnaire Thrive Questionnaire Date Thrive assessed: 09/16/22 JIM-7 AMB Questionnaire JIM-7 Date JIM - 7 assessed: 09/16/22 Source: Developed by Drs. Sky Waterman, Elsa Arevalo, Harinder William and colleagues, with an educational yajaira from [employer]. Review of Systems Const Reports as per HPI ENT Reports no additional complaints Card Denies chest pain, Denies chest pain at rest and Denies chest pain with activity Resp Denies chest congestion and Denies cough GI Reports no additional complaints Musc Details: Denies abnormal gait, Denies myalgias, Denies arthralgias, Denies joint swelling, Denies muscle cramps and Reports stiffness Skin/Breast Reports pruritus and Denies wounds Neuro Reports no additional complaints and Denies abnormal gait Psych Denies no additional complaints Endo Reports no additional complaints Physical exam (Primary Care) Tobacco/Smoking Status: Tobacco use Status Tobacco use date assessed 09/09/21 01/26/24 09:39 Patient Tobacco Use Status Never used Tobacco 01/26/24 09:39 e-Cigarette/Vaping Use Never Used 01/26/24 09:39 Thrive Assessment: Date of Thrive Assessment Date Thrive assessed 09/16/22 01/26/24 09:39 Telehealth Telehealth [facility] Location of provider rendering services: practice address Location of patient: address on file Patient Identification confirmed using: Name, : Yes Telehealth method: video Patient verbally consented to treatment: Yes Patient verbally consented to billing insurance company: Yes Patient informed of any privacy concerns related to visit: Yes Minutes spent on Phone/Video with Pt.: 15 Results Reviewed Results Reviewed: Name: Patricia Chaney Age/Sex: 68/F : 1955 Unit#: [id number] Attend Dr: Arely Lieberman MD Re01/10/24 Status: DEP REF Location: [facility] Disch: SPEC : [id number] JESSY: 01/10/24 STATUS: COMP REQ : [id number] RECD: 01/10/24-[address]: Arely Lieberman MD COMP: 01/10/24-1408 ENTERED: 01/10/24-[address]: ORDERED: AST, ALT, Lipid Panel, Vitamin D 25-OH Test Result Flag Reference AST (GOT) 24 5-31 U/L ALT (GPT) 23 0-31 U/L Triglyceride 101 <150 mg/dL Desirable Triglyceride: less than 150 mg/dL Borderline High Triglyceride 150-199 mg/dL High Triglyceride: 200-499 mg/dL Very High Triglyceride: greater than or equal to 5OO mg/dL Cholesterol 198 <200 mg/dL Desirable Cholesterol: less than 200 mg/dL Borderline High Cholesterol: 200-239 mg/dL High Cholesterol: greater than 239 mg/dL LDL Calculated 123 H <100 mg/dL Desirable LDL: less than 100 mg/dL Near Optimal/Above Optimal LDL: 110-129 mg/dL Borderline High LDL: 130-159 mg/dL High LDL: 160-189 mg/dL Very High LDL: greater than or equal to 190 mg/dL HDL 55 >40 mg/dL Desirable HDL: greater than 40 mg/dL Note: This HDL assay may give artificially low results in patients with liver disease. Vit D 25-OH Tot 51.1 >30 ng/mL Health Based Reference Values* < 20 ng/mL Deficient 20-30 ng/mL Insufficient > 30 ng/mL Sufficient *Leighton BOWMAN. N Engl J Med. 2007;[id number] Care must be taken in interpreting Vitamin D results from different laboratories and methodologies. Published data demonstrated that results from patients undergoing hemodialysis may show a negative bias when tested with various automated 25-OH vitamin D assays when compared to LC-MS/MS. When testing samples from patients whose predominant form of Vitamin D is Vitamin D2, such as patients receiving Vitamin D2 supplementation, results that are subtherapeutic should Assessment and Plan Assessment & Plan (1) Dyslipidemia: Code(s): E78.5 - Hyperlipidemia, unspecified Plan: Reviewed recent fasting lipid profile with patient with levels within normal limit . Continue lovastatin 20 mg at night , in addition to adherence to low-cholesterol diet and regular exercise, at least 30 minutes 3 to 4 times a week. Advised patient to make healthy food choices, eat more fruits, vegetables, whole grains, wild caught fish and low-fat dairy. Limit amount of meat and fried or fatty food products, as well as processed foods and fast foods. Will repeat fasting lipids again in 08/2024 prior to her physical exam (2) Acquired hypothyroidism: Code(s): E03.9 - Hypothyroidism, unspecified Plan: Continue with levothyroxine 88 mcg daily, last thyroid levels were within normal limits, recheck levels again in 08/2024 Orders: Orders Aspartate Amino Transferase 08/24/24 E03.9 - Hypothyroidism, unspecified, E78.5 - Hyperlipidemia, unspecified, Z13.1 - Encounter for screening for diabetes mellitus, Z78.0 - Asymptomatic menopausal state Basic Metabolic Panel Fasting 08/24/24 E03.9 - Hypothyroidism, unspecified, E78.5 - Hyperlipidemia, unspecified, Z13.1 - Encounter for screening for diabetes mellitus, Z78.0 - Asymptomatic menopausal state Vitamin D 25-OH Total 08/24/24 E03.9 - Hypothyroidism, unspecified, E78.5 - Hyperlipidemia, unspecified, Z13.1 - Encounter for screening for diabetes mellitus, Z78.0 - Asymptomatic menopausal state Thyroid Stimulating Hormone 08/24/24 E03.9 - Hypothyroidism, unspecified, E78.5 - Hyperlipidemia, unspecified, Z13.1 - Encounter for screening for diabetes mellitus, Z78.0 - Asymptomatic menopausal state Alanine Aminotransferase 08/24/24 E03.9 - Hypothyroidism, unspecified, E78.5 - Hyperlipidemia, unspecified, Z13.1 - Encounter for screening for diabetes mellitus, Z78.0 - Asymptomatic menopausal state Lipid Panel 08/24/24 E03.9 - Hypothyroidism, unspecified, E78.5 - Hyperlipidemia, unspecified, Z13.1 - Encounter for screening for diabetes mellitus, Z78.0 - Asymptomatic menopausal state Free T4 (Free Thyroxine) 08/24/24 E03.9 - Hypothyroidism, unspecified, E78.5 - Hyperlipidemia, unspecified, Z13.1 - Encounter for screening for diabetes mellitus, Z78.0 - Asymptomatic menopausal state Medications: Refilled lovastatin 20 mg PO BEDTIME 90 tabs 4RF E78.5 - Hyperlipidemia, unspecified levothyroxine 88 mcg PO DAILY 90 tabs 4RF Coding Level of Care Code Tele Est Pt Level 4 (35384) Diagnoses Dyslipidemia E78.5 Acquired hypothyroidism E03.9
== END 2024-01-26 11:46 | disposition home or self-care (01) ==
LOC: HO.HMGC 08:36
PROVIDERS: PCP Internal Medicine; Visit Provider Internal Medicine
DX: E78.5 Hyperlipidemia, unspecified (principal); E03.9 Hypothyroidism, unspecified
CPT/HCPCS: 99214

== ENCOUNTER 2024-07-17 06:42 | Emergency (ER) | payer MEDICARE, SELFPAY ==
--- NOTE | ~2024-07-17 | US_ITS ---
EXAMINATION: US ABDOMEN LIMITED CLINICAL INFORMATION: Right upper quadrant pain. Transaminitis. Nausea, vomiting, diarrhea. Question common bile duct dilation. COMPARISON: None available. TECHNIQUE: Real-time imaging of the common bile duct. FINDINGS: LIVER: The incidentally visualized portion of the liver appears unremarkable. GALLBLADDER: Not visualized, consistent with prior surgical removal. Technologist reports a negative sonographic Talley's sign. COMMON BILE DUCT: Normal in caliber measuring 0.4 cm in diameter. US/US abdomen limited IMPRESSION: No acute finding. Electronically signed by: Jimmy Jalloh MD 07/17/2024 12:39 PM [facility]
--- NOTE | ~2024-07-17 | XR_ITS ---
EXAMINATION: XR CHEST 2 VIEWS CLINICAL INFORMATION: cough COMPARISON: Prior chest x-ray March 02, 2020 TECHNIQUE: XR CHEST 2 VIEWS, 2 Views Lungs and Pascale: Mild interstitial lung marking diffuse, no dense focal consolidation. Pleura: Normal. Costophrenic angles are sharp. No pneumothorax. Heart and mediastinum: The heart is normal in size. Bones and soft tissue: No acute changes XR/XR chest 2V IMPRESSION: Mild interstitial lung marking, cannot rule out mild interstitial pneumonitis or small airway disease. No dense lobar consolidation lobar pneumonia. No pleural effusion. Electronically signed by: Asia Marino MD 07/17/2024 11:30 AM [facility]
--- NOTE | ~2024-07-17 | CT_ITS ---
EXAMINATION: CT ABDOMEN AND PELVIS WITH CONTRAST CLINICAL INFORMATION: Nausea, vomiting, and diarrhea for 6 days. Diffuse abdominal pain. COMPARISON: None available. TECHNIQUE: Multidetector volumetric images were obtained from the superior aspect of the liver through the pubic symphysis following administration 85 mL of Omnipaque 350 intravenous contrast. Sagittal and coronal reformatted images were obtained on the technologist's workstation. Oral contrast: No This CT examination was performed using dose optimization techniques as appropriate, variously including the following: *Automated exposure control *Adjustment of mA and/or kV according to patient size (this includes techniques or standardized protocols for targeted exams where dose is matched to indication/reason for exam; i.e. extremities or head) *Use of iterative reconstruction technique DLP: 495 mGy-cm FINDINGS: LUNG BASES: Mild bibasilar dependent atelectasis and/or fibrotic streaks. No pleural effusion. Heart normal in size. No pericardial effusion. LIVER, GALLBLADDER, AND BILIARY TREE: The liver appears unremarkable in size, shape, and attenuation. No focal hepatic lesion or biliary ductal dilatation is appreciated. Status post cholecystectomy. PANCREAS: Unremarkable SPLEEN: Unremarkable ADRENAL GLANDS: Unremarkable KIDNEYS AND URETERS: The kidneys appear unremarkable in size, shape, and attenuation. No hydronephrosis, hydroureter, or calculi seen. BLADDER: Unremarkable GASTROINTESTINAL TRACT: Stomach and small bowel appear unremarkable. Diverticulosis predominantly involving the sigmoid and descending colon, without evidence of diverticulitis. Normal-appearing distal ileum. No evidence of appendicitis. ABDOMINAL WALL: No significant hernia is appreciated. LYMPH NODES: Approximately 1.1 cm portacaval lymph node, possibly reactive (image 21, series 3). No other evidence of adenopathy by size criteria. VASCULAR: Unremarkable PELVIC VISCERA: Unremarkable OSSEOUS STRUCTURES: Degenerative changes of the lumbar spine with grade 1 anterolisthesis of L4 on L5 and mild lumbar dextrocurvature. Mild degenerative changes of the hips. CT/CT abdomen pelvis w IV con IMPRESSION: No acute finding, as above. Electronically signed by: Jimmy Jalloh MD 07/17/2024 09:[address] [facility]
[2024-07-17 06:51] VITALS: BP 129/90; PULSE 106; RESP 19; TEMP 36.8; O2SAT 96
--- NOTE | 2024-07-17 06:56 | ED_ITS ---
HPI - Abdominal Pain General Chief Complaint: Nausea/Vomiting/Diarrhea Stated Complaint: NAUSEA VOMITTING Time Seen by Provider: 07/17/24 06:50 Source: patient and EMS Mode of arrival: EMS Limitations: no limitations History of Present Illness ED Provider: Joan Mike NP HPI narrative: Patient is a 68-year-old female with past medical history of hyperlipidemia, hypothyroidism, polyarthralgia, varicose veins, prior cholecystectomy, prior appendectomy who presents emergency department for evaluation of nausea vomiting and diarrhea over the past 6 days. She reports that she is having persistent nausea, vomiting if she attempts to eat or drink anything and subsequent dry heaving throughout the day as she has not been able to tolerate any oral intake recently. She endorses having episodes of diarrhea described as 2 or 3 soft stools daily letter reportedly small volume. She denies any known sick contacts. States initially she was experiencing fevers as high as 104, but has been afebrile over the past few days. She does admit to having persistent chills. Denies chest pain, nausea, hematemesis, constipation, hematochezia, melena, dysuria, urinary frequency, urinary urgency, urinary hesitancy, hematuria. denies pelvic pain or abnormal vaginal discharge. Admits that she has had a prior colonoscopy without any abnormality. Related Data Home Medications ?Medication ?Instructions ?Recorded ?Confirmed acetaminophen 650 mg 650 mg PO Q12H 09/08/20 09/27/21 tablet,extended release (Tylenol 8 Hour) aspirin 81 mg tablet,delayed 81 mg PO DAILY 09/08/20 09/27/21 release (Adult Low Dose Aspirin) multivitamin (Daily Multi-Vitamin 1 tab PO DAILY 10/28/20 09/27/21 tablet) Vitamin D3 PO DAILY 09/09/21 09/27/21 fexofenadine 60 mg tablet (Wal-Fex 60 mg PO DAILY PRN 01/26/24 Allergy) Previous Rx's ?Medication ?Instructions ?Recorded levothyroxine 88 mcg tablet 88 mcg PO DAILY #90 tabs 01/26/24 lovastatin 20 mg tablet 20 mg PO BEDTIME #90 tabs 01/26/24 ondansetron 4 mg disintegrating 4 mg PO Q6H PRN nausea and 07/17/24 tablet vomiting #14 tabs Allergies Allergy/AdvReac Type Severity Reaction Status Date / Time azithromycin [From ZITHROMAX] Allergy Unknown HIVES, Verified 07/17/24 07:11 severe hives pravastatin Allergy Unknown hives Verified 07/17/24 07:11 atorvastatin AdvReac Unknown muscle Verified 07/17/24 07:11 cramps Review of Systems Review of Systems Yes all other systems are reviewed and are negative [facility] Past Medical History Attestation statement: The following information was validated with the patient. Source: old records reviewed Medical History History of shingles Polyarthralgia Varicose veins of both lower extremities with pain Family history of breast cancer Postmenopause Colon cancer screening Dyslipidemia Acquired hypothyroidism Periorbital cellulitis Surgical History H/O colonoscopy History of breast biopsy Hx of cholecystectomy History of appendectomy Family History Family History Father Chronic heart disease COPD (chronic obstructive pulmonary disease) Restrictive lung disease Afib CAD (coronary artery disease) Diabetes mellitus Mother Type 2 diabetes mellitus Arthritis Breast cancer Cervical cancer Glaucoma CAD (coronary artery disease) Brother Parkinson disease Sister Non Hodgkin's lymphoma Uterine cancer, Onset Age: 56 Sister No problems noted. Daughter No problems noted. Daughter No problems noted. Sister Breast cancer Social History Social History Household Members: None Housing Other:: mobile home Alcohol intake: current Alcohol intake frequency: holidays/special occasions only Patient Tobacco Use Status: Never used Tobacco e-Cigarette/Vaping Use: Never Used Advance Directives: No Advance Directives Information Provided: Yes Do you have a plan to hurt others: No Plan service: No Current occupational status: employed Physical Exam ED Vital Signs: Vital Signs - 24 hr 07/17/24 06:51 07/17/24 07:07 07/17/24 10:09 Temperature 98.2 F 98.6 F Pulse Rate 106 H 108 H 98 Respiratory Rate 19 16 14 Blood Pressure 129/90 H 129/90 H 145/83 H Pulse Oximetry 96 96 97 Oxygen Delivery Method Room Air Room Air Room Air BMI result Body Mass Index 25.2 Appearance: Alert.?Oriented to person, place and time. No acute distress.?Normal affect.?? Neck: Normal inspection.? Neck supple.?? CVS: Heart sounds normal. Normal heart rate and rhythm.? Pulses normal.?? Respiratory: No respiratory distress.? Lung sounds clear to auscultation bilaterally?? Abdomen: Soft diffuse mild tenderness upon palpation.. No rebound tenderness at McBurney's point. Negative psoas sign. Negative Rovsing sign. Negative Talley sign. Hypoactive bowel sounds. No pulsatile mass.?? Skin: Skin warm and dry.? Normal skin color.? Extremities: No lower extremity edema.? Neuro: Moves all extremities spontaneously. Sensation intact bilaterally. Ambulates with normal steady gait. Course Reevaluation(s) Reevaluation #1: Received call from laboratory regarding critical Hematology results with 40 bands, leukopenia 4700, mild thrombocytopenia no anemia. No electrolyte derangement. No DELLA. Lactic acid 1.6. Elevated LFT with AST 230, ALT 254, alk-phos 178, normal lipase and T bili. Viral serologies are negative. Pending CT of the abdomen and pelvis at this time. Given significant bandemia obtaining blood cultures, covering with Zosyn, at this time not consistent with severe sepsis/sharp, would defer full sepsis fluid bolus order, thus far she has received 1 L normal saline IV fluid. Time: 08:56 Reevaluation #2: CT of the abdomen pelvis without acute findings. At this time as etiology of symptoms is unclear. May possibly be a viral gastroenteritis versus bacterial. Urinalysis has since been obtained, micro remains pending that is without nitrites and leukocyte esterase to suggest genitourinary pathology. Given the significant bandemia adding on serum labs including CRP and procalcitonin. She does have transaminitis which appears to be new, has post cholecystectomy, do discuss his case with my attending Dr. Aguilar, will obtain ultrasound to exclude hepatic/CBD abnormality, in addition to CXR to exclude acute pulmonary pathology. Time: 10:57 Reevaluation #3: Patient signed out to [facility] pending remaining labs, ultrasound and CXR Additional Reevaluation(s): I received a sign-out on this patient. However, my attending has been following this case. Patient with leukopenia and initially had a bandemia. Repeat CBC ordered by my attending Dr. Aguilar. Chemistry with no acute electrolyte abnormalities needing intervention. Transaminases are elevated, this is nonspecific but likely related to viral illness. My attending agrees with this. CRP elevated 3.3, procalcitonin 0.4. A Monospot is pending. UA without infection. Abdominal ultrasound with no acute findings. CT abdomen and pelvis with mild interstitial lung markings can not rule out mild interstitial pneumonitis or small airway disease, patient does not have upper respiratory symptoms this is unlikely. No dense lobular consolidation lobar pneumonia. By attending went in and spoke with the patient and states this is likely viral illness. As long as CBC is not worse patient will likely be discharged home with supportive measures. 1410' Bands decreased to 22 % and lymphs now 10% Dr. Aguilar feels like patient is good for DC home likely viral illness. Medical Decision Making Medical Decision Making MDM Narrative: Patient is a 68-year-old female with past medical history of hyperlipidemia, hypothyroidism, polyarthralgia, varicose veins, prior cholecystectomy, prior appendectomy who presents emergency department for evaluation of nausea vomiting and diarrhea over the past 6 days. On examination has mild diffuse tenderness without exquisite tenderness in one area versus another. She arrives afebrile without hypotension though she is mildly tachycardic this may be secondary to volume depletion/dehydration. She has no rigidity or guarding no rebound tenderness. Concern for gastroenteritis versus bowel obstruction versus diverticulitis. Will obtain CBC to evaluate for leukocytosis/ anemia, CMP and lipase to evaluate for abnormal electrolytes /abnormal renal function/ abnormal hepatic/biliary function, CT abdomen and pelvis and Urinalysis. Patient received ondansetron I gave her normal saline IV fluid. Differential Diagnosis Differential Diagnoses: The differential diagnosis associated with the presentation includes (See narrative above) No associated chest pain shortness of breath or URI symptoms to suggest pneumonia, no clinical evidence of DVT or personal history of VTE/malignancy to suggest pulmonary embolism. No overt right upper quadrant abdominal tenderness upon palpation, given history of cholecystectomy, and physical examination lower suspicion for CBD dilation/stone. She does have history of GERD, tenderness upon palpation diffusely, given presence of nausea and vomiting, may suggest gastritis, no recent hematemesis history less likely to suggest PUD. Denies excessive alcohol consumption, history of diabetes, lower suspicion acute pancreatitis. No rebound tenderness at McBurney's point, rigidity, guarding to suggest acute appendicitis. No appreciable hernia to suggest strangulation/incarceration. No distention or rigidity to suggest GI perforation. No associated genitourinary symptoms to suggest UTI/pyelonephritis, renal colic, hydronephrosis. Admission/Observation Consideration of admission/observation: Escalation of care including admission/observation considered (See narrative above ) Lab Data MDM Lab Attestation statement: I reviewed the patient's lab results. 07/17/24 12:33 07/17/24 07:59 Labs: Lab Results 07/17/24 07/17/24 07/17/24 Range/Units 07:59 08:00 10:35 WBC 4.7 L (4.8-10.8) X10*3/uL RBC 4.85 (4.20-5.50) X10*6/uL Hgb 15.3 (12.0-16.0) g/dl Hct 43.9 (37.0-47.0) % MCV 90.5 (80.0-98.0) fL MCH 31.5 (27.0-33.0) pg MCHC 34.9 (31.0-35.0) g/dl RDW 13.2 (11.0-16.0) % Plt Count 124 L (160-400) X10*3/uL MPV 9.9 (9.4-12.3) fL Immature Gran % (Auto) Cancelled Neut % (Auto) Cancelled Lymph % (Auto) Cancelled [place] % (Auto) Cancelled Eos % (Auto) Cancelled Baso % (Auto) Cancelled Lymph # (Auto) Cancelled [place] # (Auto) Cancelled Eos # (Auto) Cancelled Baso # (Auto) Cancelled Abs Immat Gran (auto) Cancelled Absolute Neuts (auto) Cancelled Absolute Nucleated RBC 0.000 (0.0-0.012) X10*3/uL Nucleated RBC % (auto) 0.0 (0.0-0.2) /100WBC Neutrophils % (Manual) 51 (45-73) % Band Neutrophils % 40 H (3-5) % Lymphocytes % (Manual) 3 L (20-40) % Atypical Lymphs % (Man) 1 (0-6) % Monocytes % (Manual) 4 (2-11) % Basophils % (Manual) 1 (0-2) % Abs Neuts (Manual) 4.3 (2.0-8.3) X10*3/uL Lymphocytes # (Manual) 0.1 L (1.2-4.9) X10*3/uL Atyp Lymphs # (Manual) x10*3/uL Monocytes # (Manual) 0.2 (0.1-1.2) X10*3/uL Toxic Vacuolation PRESENT Platelet Estimate SLIGHTLY DECREASED (NORMAL) Plt Morphology Comment NORMAL RBC Morphology NORMAL Sodium 139 (135-145) mmol/L Potassium 3.5 (3.3-5.1) mmol/L Chloride 103 (96-108) mmol/L Carbon Dioxide 25 (22-29) mmol/L Anion Gap 15 (12-20) BUN 15 (9-16) mg/dL Creatinine 0.97 (0.5-1.4) mg/dL Estim Creat Clear Calc 52.6 Estimated GFR 57 Random Glucose 139 H (60-115) mg/dL Lactic Acid 1.6 (0.5-2.0) mmol/L Calcium 9.6 (8.4-10.2) mg/dL Magnesium 2.0 (1.6-2.6) mg/dL Total Bilirubin 0.8 (0.0-1.0) mg/dL AST 230 H (5-31) U/L ALT 254 H (0-31) U/L Alkaline Phosphatase 178 H (39-117) U/L C-Reactive Protein 3.33 H (< or = 0.50) mg/dL Total Protein 8.0 (6.5-8.0) g/dL Albumin 4.0 (3.5-5.0) g/dL Lipase 31 (8-78) U/L Procalcitonin 0.40 ng/mL Urine Color Dark Yellow Urine Appearance Clear Urine pH 6.0 (5.0-9.0) Ur Specific [place] >= 1.030 H (1.005-1.025) Urine Protein 100 (2+) H (Neg-Trace) mg/dL Urine Glucose (UA) Negative (Negative) mg/dL Urine Ketones 15 (Negative) mg/dL Urine Blood Negative (Negative) Urine Nitrite Negative (Negative) Ur Leukocyte Esterase Negative (Negative) Urine RBC 0-2 (0-2) /HPF Urine WBC 0-5 (0-5) /HPF Ur Squamous Epith Cells 3-5 (0-2) /HPF Calcium Oxalate Crystal Present Urine Bacteria None Seen (None Seen) Hyaline Casts 0-2 (0-2) /LPF Monoscreen (Negative) Influenza Type A (PCR) NEGATIVE (Negative) Influenza Type B (PCR) NEGATIVE (Negative) RSV RNA Qual (PCR) NEGATIVE (Negative) SARS-CoV-2 RNA (RT-PCR) NEGATIVE (Negative) 07/17/24 Range/Units 12:33 WBC 3.5 L (4.8-10.8) X10*3/uL RBC 4.29 (4.20-5.50) X10*6/uL Hgb 13.7 (12.0-16.0) g/dl Hct 39.1 (37.0-47.0) % MCV 91.1 (80.0-98.0) fL MCH 31.9 (27.0-33.0) pg MCHC 35.0 (31.0-35.0) g/dl RDW 13.2 (11.0-16.0) % Plt Count 112 L (160-400) X10*3/uL MPV 9.9 (9.4-12.3) fL Immature Gran % (Auto) Cancelled Neut % (Auto) Cancelled Lymph % (Auto) Cancelled [place] % (Auto) Cancelled Eos % (Auto) Cancelled Baso % (Auto) Cancelled Lymph # (Auto) Cancelled [place] # (Auto) Cancelled Eos # (Auto) Cancelled Baso # (Auto) Cancelled Abs Immat Gran (auto) Cancelled Absolute Neuts (auto) Cancelled Absolute Nucleated RBC 0.000 (0.0-0.012) X10*3/uL Nucleated RBC % (auto) 0.0 (0.0-0.2) /100WBC Neutrophils % (Manual) 56 (45-73) % Band Neutrophils % 22 H (3-5) % Lymphocytes % (Manual) 4 L (20-40) % Atypical Lymphs % (Man) 10 H (0-6) % Monocytes % (Manual) 7 (2-11) % Basophils % (Manual) 1 (0-2) % Abs Neuts (Manual) 2.7 (2.0-8.3) X10*3/uL Lymphocytes # (Manual) 0.1 L (1.2-4.9) X10*3/uL Atyp Lymphs # (Manual) 0.4 x10*3/uL Monocytes # (Manual) 0.2 (0.1-1.2) X10*3/uL Toxic Vacuolation Platelet Estimate SLIGHTLY DECREASED (NORMAL) Plt Morphology Comment NORMAL RBC Morphology NORMAL Sodium (135-145) mmol/L Potassium (3.3-5.1) mmol/L Chloride (96-108) mmol/L Carbon Dioxide (22-29) mmol/L Anion Gap (12-20) BUN (9-16) mg/dL Creatinine (0.5-1.4) mg/dL Estim Creat Clear Calc Estimated GFR Random Glucose (60-115) mg/dL Lactic Acid (0.5-2.0) mmol/L Calcium (8.4-10.2) mg/dL Magnesium (1.6-2.6) mg/dL Total Bilirubin (0.0-1.0) mg/dL AST (5-31) U/L ALT (0-31) U/L Alkaline Phosphatase (39-117) U/L C-Reactive Protein (< or = 0.50) mg/dL Total Protein (6.5-8.0) g/dL Albumin (3.5-5.0) g/dL Lipase (8-78) U/L Procalcitonin ng/mL Urine Color Urine Appearance Urine pH (5.0-9.0) Ur Specific [place] (1.005-1.025) Urine Protein (Neg-Trace) mg/dL Urine Glucose (UA) (Negative) mg/dL Urine Ketones (Negative) mg/dL Urine Blood (Negative) Urine Nitrite (Negative) Ur Leukocyte Esterase (Negative) Urine RBC (0-2) /HPF Urine WBC (0-5) /HPF Ur Squamous Epith Cells (0-2) /HPF Calcium Oxalate Crystal Urine Bacteria (None Seen) Hyaline Casts (0-2) /LPF Monoscreen Negative (Negative) Influenza Type A (PCR) (Negative) Influenza Type B (PCR) (Negative) RSV RNA Qual (PCR) (Negative) SARS-CoV-2 RNA (RT-PCR) (Negative) Radiology Impression Discussion of test interpretation with radiology: I have reviewed the radiologist's reading. Radiologist Impression: CT/CT abdomen pelvis w IV con IMPRESSION: No acute finding, as above. Independent Historian Clinical information obtained from an independent historian. History obtained from or confirmed by: EMS External Record Review External record reviewed: Outpatient record Chronic Conditions Patient?s care impacted by: Other (See narrative above) Medications Administered Discontinued Medications Generic Name Dose Route Start Last Admin Trade Name Freq PRN Reason Stop Dose Admin Sodium Chloride 1,000 mls @ 999 mls/hr 07/17/24 07:45 07/17/24 12:40 Ns IV 07/17/24 08:45 Infused .Q1H1M JUSTINA Infusion Piperacillin Sod/Tazobactam 100 mls @ 200 mls/hr 07/17/24 08:55 07/17/24 10:18 Sod 4.5 gm/ Sodium Chloride IV 07/17/24 09:24 Infused ONCE ONE Infusion Iohexol 100 ml 07/17/24 09:30 07/17/24 09:30 Iohexol 350 Mg/Ml 100 Ml Infus..Btl IV 07/17/24 09:31 85 ml ONCE ONE Administration Ondansetron HCl 4 mg 07/17/24 07:45 07/17/24 08:06 Ondansetron Hcl 4 Mg/2 Ml Vial IVPUSH 07/17/24 07:46 4 mg ONCE ONE Administration Critical Care Time Critical Care Time Critical Care Time: No Discharge Plan Discharge Clinical Impression: Nausea & vomiting, Viral illness Patient Disposition: Home, Self-Care Instructions: Acute Nausea and Vomiting (ED), Viral Syndrome (ED) Additional Instructions: Take your medications as prescribed. If you were prescribed antibiotics today, it is important that you take your medication to their entirety, do not skip any doses, do not finish them early. Follow-up with your primary care provider this week. Return to the emergency department with new or worsening symptoms. Such as fevers, chills, chest pain, shortness of breath, nausea, vomiting, dizziness, headache, vision changes, lethargy In case of emergency call 911 Prescriptions: New ondansetron 4 mg tablet,disintegrating 4 mg PO Q6H PRN (Reason: nausea and vomiting) Qty: 14 0RF No Action acetaminophen [Tylenol 8 Hour] 650 mg tablet extended release 650 mg PO Q12H aspirin [Adult Low Dose Aspirin] 81 mg tablet,delayed release (DR/EC) 81 mg PO DAILY lovastatin 20 mg tablet 20 mg PO BEDTIME Qty: 90 4RF levothyroxine 88 mcg tablet 88 mcg PO DAILY Qty: 90 4RF multivitamin [Daily Multi-Vitamin] Tablet 1 tab PO DAILY Vitamin D3 1,000 units PO DAILY fexofenadine [Wal-Fex Allergy] 60 mg tablet 60 mg PO DAILY PRN Referrals: Arely Lieberman MD [Primary Care Provider] - 2 days Stand Alone Forms: Work/School Release Print Language: Martiniquais
[2024-07-17 07:07] VITALS: BP 129/90; BP 132/88; PULSE 108; PULSE 128; RESP 16; TEMP 37; O2SAT 96; O2SAT 98; BMI 25.2
[2024-07-17] MEDS: 0.9 % Sodium Chloride 1,000 ML 999 ML IV (08:04)
[2024-07-17] MEDS: ondansetron HCL 4 MG/2 ML VIAL IVPUSH (08:06)
[2024-07-17 08:23] LABS: Hematocrit 43.9 % (37.0-47.0); Hemoglobin 15.3 g/dl (12.0-16.0); Mean Corpuscular HGB Conc 34.9 g/dl (31.0-35.0); Mean Corpuscular Hemoglobin 31.5 pg (27.0-33.0); Mean Corpuscular Volume 90.5 fL (80.0-98.0); Mean Platelet Volume 9.9 fL (9.4-12.3); PLT CLUMP 1; Red Blood Count 4.85 X10*6/uL (4.20-5.50); Red Cell Distribution Width 13.2 % (11.0-16.0)
[2024-07-17 08:26] LABS: Platelet Count 124 X10*3/uL (160-400); White Blood Count 4.7 X10*3/uL (4.8-10.8)
[2024-07-17 08:38] LABS: Alanine Aminotransferase 254 U/L (0-31); Alkaline Phosphatase 178 U/L (39-117); Anion Gap 15 (12-20); Aspartate Amino Transferase 230 U/L (5-31); Bilirubin Total 0.8 mg/dL (0.0-1.0); Blood Urea Nitrogen 15 mg/dL (9-16); Calcium 9.6 mg/dL (8.4-10.2); Carbon Dioxide 25 mmol/L (22-29); Chloride 103 mmol/L (96-108); Creatinine Clr Calc Pharmacy 52.6; Estimated Glomerular Filt Rate 57; Glucose Random 139 mg/dL (60-115); Lipase 31 U/L (8-78); Potassium 3.5 mmol/L (3.3-5.1); Sodium 139 mmol/L (135-145)
[2024-07-17 08:39] LABS: Lactic Acid 1.6 mmol/L (0.5-2.0)
[2024-07-17 08:42] LABS: Influenza A PCR NEGATIVE (Negative); Influenza B PCR NEGATIVE (Negative); Resp Syncy Virus RNA Qual PCR NEGATIVE (Negative); SARS COV2 PCR INHOUSE NEGATIVE (Negative)
[2024-07-17 08:49] LABS: Neutrophils Percent Manual 51 % (45-73)
[2024-07-17 08:52] LABS: Atypical Lymphs Percent Manual 1 % (0-6); Band Neutrophils Percent 40 % (3-5); Basophils Percent Manual 1 % (0-2); Lymphocytes Absolute Manual 0.1 X10*3/uL (1.2-4.9); Lymphocytes Percent Manual 3 % (20-40); Monocytes Absolute Manual 0.2 X10*3/uL (0.1-1.2); Monocytes Percent Manual 4 % (2-11); Neutrophils Absolute Manual 4.3 X10*3/uL (2.0-8.3); Platelet Estimate SLIGHTLY DECREASED (NORMAL); Platelet Morphology Comment NORMAL; RBC Morphology NORMAL; Toxic Vacuolation PRESENT
[2024-07-17] MEDS: iohexoL 350 MG/ML 100 ML INFUS..BTL IV (09:30)
[2024-07-17] MEDS: Piperacillin Sodium/Tazobactam 4.5 GM in 0.9 % Sodium Chloride 100 ML IV (09:48)
[2024-07-17 10:09] VITALS: BP 145/83; PULSE 98; RESP 14; O2SAT 97
[2024-07-17 10:47] LABS: Appearance Urine Clear; Color Urine Dark Yellow; Glucose Urine UA Negative (Negative); Leukocyte Esterase Urine Negative (Negative); Nitrite Urine Negative (Negative); Specific Gravity - Urine >= 1.030 (1.005-1.025); UMIC TRIGGER UACC YES; Urine Blood Negative (Negative); Urine Ketones 15 mg/dL (Negative); Urine Protein 100 (2+) mg/dL (Neg-Trace)
[2024-07-17 11:01] LABS: Bacteria Urine None Seen (None Seen); Calcium Oxalate Crystals Urine Present; Hyaline Casts Urine 0-2 /LPF (0-2); RBC Urine 0-2 /HPF (0-2); WBC Urine 0-5 /HPF (0-5)
[2024-07-17 11:34] LABS: C Reactive Protein 3.33 mg/dL (< or = 0.50)
[2024-07-17 12:45] LABS: Hematocrit 39.1 % (37.0-47.0); Hemoglobin 13.7 g/dl (12.0-16.0); Mean Corpuscular Hemoglobin 31.9 pg (27.0-33.0); Mean Corpuscular Volume 91.1 fL (80.0-98.0); Mean Platelet Volume 9.9 fL (9.4-12.3); Platelet Count 112 X10*3/uL (160-400); Red Blood Count 4.29 X10*6/uL (4.20-5.50); Red Cell Distribution Width 13.2 % (11.0-16.0); White Blood Count 3.5 X10*3/uL (4.8-10.8)
[2024-07-17 13:32] LABS: Neutrophils Percent Manual 56 % (45-73)
[2024-07-17 13:33] LABS: Atypical Lymph Absolute Manual 0.4 x10*3/uL; Atypical Lymphs Percent Manual 10 % (0-6); Band Neutrophils Percent 22 % (3-5); Basophils Percent Manual 1 % (0-2); Lymphocytes Absolute Manual 0.1 X10*3/uL (1.2-4.9); Lymphocytes Percent Manual 4 % (20-40); Monocytes Absolute Manual 0.2 X10*3/uL (0.1-1.2); Monocytes Percent Manual 7 % (2-11); Neutrophils Absolute Manual 2.7 X10*3/uL (2.0-8.3)
[2024-07-17 13:39] LABS: Monotest Negative (Negative)
[2024-07-17 13:45] LABS: Platelet Estimate SLIGHTLY DECREASED (NORMAL); Platelet Morphology Comment NORMAL; RBC Morphology NORMAL
[2024-07-17 14:19] VITALS: BP 138/90; PULSE 98; RESP 16; TEMP 39; O2SAT 98
[2024-07-17] MEDS: Acetaminophen 325 MG TABLET 650 MG PO (14:28)
[2024-07-17 14:32] VITALS: BP 138/90; PULSE 98; RESP 16; TEMP 39; O2SAT 98
== END 2024-07-17 14:34 | disposition home or self-care (01) ==
PROVIDERS: Nurse Practitioner Family; Emergency Provider Emergency Medicine; PCP Internal Medicine
DX: B34.9 Viral infection, unspecified (principal); R11.2 Nausea with vomiting, unspecified; R50.9 Fever, unspecified; R10.2 Pelvic and perineal pain; Z03.818 Encounter for observation for suspected exposure to other biological agents ruled out; Z79.899 Other long term (current) drug therapy
CPT/HCPCS: 0241U; 36415; 71046; 74177; 76705; 80053; 81001; 83605; 83690; 83735; 84145; 85007; 85025; 85027; 86140; 86308; 87040; 96361; 96374; 96375; 99285; J2405; J2543; Q9967

== ENCOUNTER 2024-08-14 13:58 | Outpatient (REF) | payer MEDICARE, SELFPAY ==
--- NOTE | ~2024-08-14 | MM_ITS ---
EXAMINATION: MM DIAGNOSTIC DIGITAL BREAST TOMOSYNTHESIS, BILATERAL CLINICAL INFORMATION: 18 month follow-up for left breast calcifications and asymmetry without prior sonographic correlate. COMPARISON: Mammography: Comparison is made with relevant prior exams. TECHNIQUE: Digital breast mammography with tomosynthesis is performed in both the craniocaudal and mediolateral oblique views along with computer-aided detection (CAD). FINDINGS: The breasts are heterogeneously dense, which may obscure small masses (ACR BI-RADS breast composition Category c). Right: There are no significant masses, abnormal calcifications, or other abnormalities. Left: Marker clip in the upper outer left breast posterior depth. Grouped punctate calcifications in the lower central breast middle depth are not significantly changed from prior magnification views dating back to June 2023. Asymmetry anterior to the calcifications on CC view without prior site of a correlate is less conspicuous compared with priors not significantly changed dating back to June 2023. Results are provided to the patient at time of visit by the technologist. MM/MM tomosynthesis diagnostic BI IMPRESSION: Right: Negative. Left: 1. Grouped calcifications in the left breast not significantly changed for 18 months. Recommend one-year diagnostic mammogram with magnification views to demonstrate 2 years of stability when the patient is due for bilateral mammography. 2. Asymmetry retroareolar region on CC view without prior sonographic correlate stable for 18 months. Recommend diagnostic mammogram in one year when the patient is due for bilateral mammography to demonstrate 2 years of stability. ASSESSMENT: BI-RADS BI-RADS 3 - Probably benign finding(s) - 12 month follow-up suggested RECOMMENDATION: 12 month diagnostic follow up This patient's information was entered into a reminder system with a target due date for their next mammogram. Electronically signed by: Marina Boyer DO 08/14/2024 02:49 PM EST
== END 2024-08-14 13:59 | disposition home or self-care (01) ==
LOC: HO.MAMMO 13:58
PROVIDERS: PCP Internal Medicine; Visit Provider Internal Medicine
DX: R92.1 Mammographic calcification found on diagnostic imaging of breast (principal)
CPT/HCPCS: 77062; 77066

== ENCOUNTER → 2024-08-14 14:00 | Outpatient (BNV) | payer MEDICARE, SELFPAY | PROVIDERS: PCP Internal Medicine; Visit Provider Internal Medicine | DX: R92.1 Mammographic calcification found on diagnostic imaging of breast (principal) | CPT/HCPCS: 77066; G0279 ==

== ENCOUNTER 2024-09-07 07:34 | Outpatient (REF) | payer MEDICARE, SELFPAY ==
[2024-09-07 08:44] LABS: Alanine Aminotransferase 47 U/L (0-31); Anion Gap 12 (12-20); Aspartate Amino Transferase 34 U/L (5-31); Blood Urea Nitrogen 13 mg/dL (9-16); Calcium 9.5 mg/dL (8.4-10.2); Carbon Dioxide 26 mmol/L (22-29); Chloride 109 mmol/L (96-108); Cholesterol 227 mg/dL (<200); Estimated Glomerular Filt Rate > 60; Glucose Fasting 102 mg/dL (60-99); HDL Cholesterol 54 mg/dL (>40); LDL Cholesterol Calculated 145 mg/dL (<100); Potassium 3.9 mmol/L (3.3-5.1); Sodium 143 mmol/L (135-145); Triglycerides 142 mg/dL (<150)
[2024-09-07 08:49] LABS: Free T4 (Free Thyroxine) 1.17 ng/dL (0.71-1.85); Thyroid Stimulating Hormone 5.18 uIU/mL (0.32-4.0); Vitamin D 25-OH Total 59.4 ng/mL (>30)
== END 2024-09-07 07:35 | disposition home or self-care (01) ==
LOC: HO.LAB 07:34
PROVIDERS: PCP Internal Medicine; Visit Provider Internal Medicine
DX: E78.5 Hyperlipidemia, unspecified (principal); E03.9 Hypothyroidism, unspecified; Z13.1 Encounter for screening for diabetes mellitus; Z78.0 Asymptomatic menopausal state
CPT/HCPCS: 36415; 80048; 80061; 82306; 84439; 84443; 84450; 84460

== ENCOUNTER 2024-09-09 12:46 | Outpatient (AMB) | payer MEDICARE, SELFPAY ==
[2024-09-09 12:50] VITALS: BP 130/92; PULSE 98; RESP 17; TEMP 36.7; O2SAT 98; BMI 25.3
--- NOTE | 2024-09-09 12:50 | A.OFFPC_ITS ---
Vital Signs 09/09/24 12:50 Height 5 ft 6 in Weight 157 lb BMI 25.3 BP 130/92 H Blood Pressure Location Lt brachial Position Sitting Respiration 17 Pulse 98 Pulse Source Pulse Oximeter Temp 98.1 F Temp Source Oral Pulse Oximetry (%) 98 Oxygen Delivery Method Room Air Intake Visit Reasons: PE Intake Note: Pt is here today for her PE: Mammogram 08/14/24, bone density scan 05/05/23, colonoscopy 06/25/12 Allergies azithromycin [From ZITHROMAX] Allergy (Unknown, Verified 09/09/24 13:16) HIVES, severe hives pravastatin Allergy (Unknown, Verified 09/09/24 13:16) hives atorvastatin Adverse Reaction (Unknown, Verified 09/09/24 13:16) muscle cramps Medication List - Last Reconciled 09/09/24 by Arely Lieberman MD acetaminophen ER (Tylenol 8 Hour) 650 mg PO Q12H fexofenadine (Wal-Fex Allergy) 60 mg PO DAILY PRN ibuprofen 200 mg PO Q6H PRN levothyroxine 88 mcg PO DAILY lovastatin 20 mg PO BEDTIME multivitamin (Daily Multi-Vitamin tablet) 1 tab PO DAILY ondansetron 4 mg PO Q6H PRN [Vitamin D3 PO DAILY] Tobacco use date assessed: 09/09/24 Fall risk assessment: 2 + Falls in past year Last assessed Fall Risk: 09/09/24 Dental Screening Dental Screen Date: 09/09/24 Did you have a dental visit in the last 12 months?: No Did you have a dental problem in the last 6 months where you did not have access to dental care?: No Was dental information given to patient?: Patient has dentist HPI PE HPI Details 68-year-old lady with past medical histo ry significant for dyslipidemia, acquired hypothyroidism, and varicose veins, here today for physical exam. She is up-to-date with her breast cancer screening, with last mammogram done 08/14/2024 with benign findings, last bone density was done 05/05/2023 which showed normal bone density in lumbar spine left hip and left femur, and had an aborted colonoscopy in 2011 due to patient's discomfort, was unable to push the scope past the sigmoid colon, [facility] Medical History History of shingles Polyarthralgia Varicose veins of both lower extremities with pain Family history of breast cancer Postmenopause Colon cancer screening Dyslipidemia Acquired hypothyroidism Periorbital cellulitis Surgical History H/O colonoscopy History of breast biopsy Hx of cholecystectomy History of appendectomy Family History Father Chronic heart disease COPD (chronic obstructive pulmonary disease) Restrictive lung disease Afib CAD (coronary artery disease) Diabetes mellitus Mother Type 2 diabetes mellitus Arthritis Breast cancer Cervical cancer Glaucoma CAD (coronary artery disease) Brother Parkinson disease Sister Non Hodgkin's lymphoma Uterine cancer, Onset Age: 56 Sister No problems noted. Daughter No problems noted. Daughter No problems noted. Sister Breast cancer Social History Household Members: None Housing: Other Housing Other:: mobile home Alcohol intake: current Alcohol intake frequency: holidays/special occasions only Patient Tobacco Use Status: Never used Tobacco e-Cigarette/Vaping Use: Never Used service: No Current occupational status: retired Cognitive needs: No Hearing needs: No Vision needs: Yes Female Reproductive History Menstrual Age of Menarche: 13 Questionnaire PHQ-9 Over the last 2 weeks, how often have you been bothered by any of the following problems? 1. Little interest or pleasure in doing things: not at all 2. Feeling down, depressed, or hopeless: not at all 3. Trouble falling or staying asleep, or sleeping too much: more than half the days 4. Feeling tired or having little energy: not at all 5. Poor appetite or overeating: not at all 6. Feeling bad about yourself - or that you are a failure or have let yourself or your family down: not at all 7. Trouble concentrating on things, such as reading the newspaper or watching television: not at all 8. Moving or speaking so slowly that other people could have noticed. Or the opposite - being so fidgety or restless that you have been moving around a lot more than usual: not at all 9. Thoughts that you would be better off or of hurting yourself in some way: not at all Total score: 2 Depression Screening Interpretation: Negative Depression Screening Done: Yes 26138 - PHQ-9 Billing: Yes Source: Developed by Drs. Sky Waterman, Elsa Arevalo, Harinder William and colleagues, with an educational yajaira from [employer]. Thrive Questionnaire Date Thrive assessed: 09/09/24 I am a: Patient What is your living situation today?: I have a steady place to live Within the past 12 months, did the food you bought not last and you didn't have the money to get more?: Never true Within the past 12 months, did you worry whether your food would run out before you got money to buy more?: Never true Do you have trouble paying for medicines?: No Do you have trouble getting transportation to medical appointments?: Yes Do you have trouble paying your heating and electricity bill?: No Do you have trouble taking care of your child, family member or friend?: No Do you have trouble with day-to-day activities such as bathing, preparing meals, shopping, managing finances, etc.?: No Are you currently unemployed and looking for a job?: No Are you interested in more education?: No Please select the resources that you would like help with: Transportation Currently or been in a relationship where the following occur: No concerns reported THRIVE Score: 1 AUDIT C Alcohol Use Questionnaire (AUDIT-C) 1. How often do you have a drink containing alcohol?: Never 2. How many drinks containing alcohol do you have on a typical day when you are drinking?: 1 or 2 3. How often do you have six or more drinks on one occasion?: Never Total Score: 0 JIM-7 AMB Questionnaire JIM-7 Date JIM - 7 assessed: 09/09/24 Feeling nervous, anxious, or on edge: 0 = Not at all Not being able to stop or control worryin = Not at all Worrying too much about different things: 0 = Not at all Trouble relaxin = Not at all Being so restless that it is hard to sit still: 0 = Not at all Becoming easily annoyed or irritable: 0 = Not at all Feeling afraid as if something awful might happen: 0 = Not at all Total JIM-7 score (0-4 normal; 5-9 mild; 10-14 moderate; 15-21 severe): 0 Source: Developed by Drs. Sky Waterman, Elsa Arevalo, Harinder William and colleagues, with an educational yajaira from [employer]. JIM-7 Assessment Billing JIM-7 Assessment Tool: JIM-7 Assessment 63061 Review of Systems Const Reports as per HPI Eyes Details: Sees [facility] ENT Reports no additional complaints Card Denies chest pain, Denies chest pain at rest and Denies chest pain with activity Resp Denies chest congestion and Denies cough GI Reports no additional complaints Reports no additional complaints Musc Details: Denies abnormal gait, Denies myalgias, Denies arthralgias, Denies joint swelling, Denies muscle cramps and Reports stiffness Skin/Breast Reports pruritus and Denies wounds Neuro Reports no additional complaints and Denies abnormal gait Psych Denies no additional complaints Endo Reports no additional complaints Dick/Lymph Reports no additional complaints Aller/Immun Reports no additional complaints Physical exam (Primary Care) Vital Signs: Last Vital Signs Temp 98.1 F 09/09/24 12:50 Pulse 98 09/09/24 12:50 Resp 17 09/09/24 12:50 BP 130/92 H 09/09/24 12:50 Pulse Ox 98 09/09/24 12:50 Oxygen Delivery Method Room Air 09/09/24 12:50 BMI result Body Mass Index 25.3 Tobacco/Smoking Status: Tobacco use Status Tobacco use date assessed 09/09/24 09/09/24 12:54 Patient Tobacco Use Status Never used Tobacco 09/09/24 12:54 e-Cigarette/Vaping Use Never Used 09/09/24 12:54 PHQ-9: PHQ-9 Score PHQ-9: Total score 2 09/16/24 00:52 Depression Screening Interpretation: Negative Thrive Assessment: Date of Thrive Assessment Date Thrive assessed 09/09/24 09/09/24 13:03 Currently or been in a relationship where the following occur: No concerns reported Advance Care Planning discussion: Completed/Scanned Date of discussion: 09/09/24 Who was present: Patient Forms completed: Health Care Proxy Time spent: 16-45 minutes Actual minutes spent: 3 Const General: no acute distress Nutritional Appearance: average body habitus Orientation/consciousness: patient oriented x3 Limitations: no limitations HENMT Head: Yes atraumatic Ears: external ears normal and TM's normal bilaterally General nose exam: Normal external nose present and No nasal discharge present Face and sinus: Yes face symmetric Mouth: Normal oral and palatal mucosa present, oropharynx normal and moist mucous membranes Eyes General: appearance normal, both eyes and all related structures Neck Neck: Yes full ROM, Yes no lymphadenopathy and Yes supple Chest Breast/axilla inspection: normal inspection of the breasts Breast/axilla palpation: normal palpation of the breasts Resp Effort & Inspection: normal respiratory effort and able to speak in complete sentences Auscultation: clear to auscultation bilaterally Cardio Palpation: normal PMI Rate: regular rate Rhythm: regular rhythm Heart sounds: S1 normal heart sound present and S2 normal heart sound present GI Inspection: Yes normal to inspection Palpation (GI): Soft to palpation, nontender and no guarding Auscultation: normal bowel sounds Back/Spine/Pelvis Back: No back tenderness Skin Other: Superficial varicosities on lateral aspects of both knees Neuro General: patient oriented x3, gait normal, moves all extremities, Normal light touch and pain sensation, no focal motor deficits and CN's II-XI intact bilaterally Extrem General: Yes full ROM, Yes no joint enlargement, Yes no calf tenderness and Yes normal gait Psych Appearance: grossly normal and well kempt Mental Status: mental status grossly normal Speech and movement: Normal speech and movement present Affect: normal affect Attitude: cooperative Thought process: Normal thought process present Thought content: Normal thought content present Results Reviewed Results Reviewed: Name: Patricia Chaney Age/Sex: 68/F : 1955 Unit#: [id number] Attend Dr: Maldonado Aguilar MD Re07/17/24 Status: [facility]: SPEC : [id number] JESSY: 07/17/24 STATUS: COMP REQ : [id number] RECD: 07/17/[address]: Maldonado Aguilar MD COMP: 07/17/24 ENTERED: 07/17/[address]: Arely Lieberman MD ORDERED: CBC Man Diff Test Result Flag Reference WBC 3.5 L 4.8-10.8 X10*3/uL RBC 4.29 4.20-5.50 X10*6/uL HGB 13.7 12.0-16.0 g/dl HCT 39.1 37.0-47.0 % MCV 91.1 80.0-98.0 fL MCH 31.9 27.0-33.0 pg MCHC 35.0 31.0-35.0 g/dl RDW 13.2 11.0-16.0 % PLT 112 L 160-400 X10*3/uL MPV 9.9 9.4-12.3 fL NRBC Pct Auto 0.0 0.0-0.2 /100WBC NRBC Abs Auto 0.000 0.0-0.012 X10*3/uL Neut Pct Manual 56 45-73 % Band Pct 22 H 3-5 % Results of BANDS sent by secure message to Dr. Aguilar 07/17/24 at 1332 by TYREL. Lymph PctManual 4 L 20-40 % AtLymph Pct Man 10 H 0-6 % [place] Pct Manual 7 2-11 % Baso Pct Manual 1 0-2 % ANC NeutAbsMan 2.7 2.0-8.3 X10*3/uL Lymph Abs Man 0.1 L 1.2-4.9 X10*3/uL AtLymph Abs Man 0.4 x10*3/uL [place] Abs Manual 0.2 0.1-1.2 X10*3/uL Platelet Est SLIGHTLY DECREASED NORMAL Plt Morph Com NORMAL RBC Morph NORMAL Name: Patricia Chaney Age/Sex: 68/F : 1955 Unit#: [id number] Attend Dr: Arely Lieberman MD Re09/07/24 Status: DEP REF Location: [facility] Disch: SPEC : [id number] JESSY: 09/07/24 STATUS: COMP REQ : [id number] RECD: 09/07/[address] [place]: Arely Lieberman MD COMP: 09/07/24 ENTERED: 09/07/[address] [facility] [address]: ORDERED: Met Prof Fast, AST, ALT, Lipid Panel, Vitamin D 25-OH, Free T4, TSH Test Result Flag Reference Sodium 143 135-145 mmol/L Potassium 3.9 3.3-5.1 mmol/L CL 109 H 96-108 mmol/L CO2 26 22-29 mmol/L Gap 12 12-20 BUN 13 9-16 mg/dL Creat 0.81 0.5-1.4 mg/dL eGFR > 60 Chronic Kidney Disease: Estimated GFR < 60 mL/min/1.73m2 Severe Kidney Disease: Estimated GFR < 15 mL/min/1.73m2 FBS 102 H 60-99 mg/dL A fasting glucose from 100-125 mg/dl is considered impaired (pre-diabetes). CA 9.5 8.4-10.2 mg/dL AST (GOT) 34 H 5-31 U/L ALT (GPT) 47 H 0-31 U/L Triglyceride 142 <150 mg/dL Desirable Triglyceride: less than 150 mg/dL Borderline High Triglyceride 150-199 mg/dL High Triglyceride: 200-499 mg/dL Very High Triglyceride: greater than or equal to 5OO mg/dL Cholesterol 227 H <200 mg/dL Desirable Cholesterol: less than 200 mg/dL Borderline High Cholesterol: 200-239 mg/dL High Cholesterol: greater than 239 mg/dL LDL Calculated 145 H <100 mg/dL Desirable LDL: less than 100 mg/dL Near Optimal/Above Optimal LDL: 110-129 mg/dL Borderline High LDL: 130-159 mg/dL High LDL: 160-189 mg/dL Very High LDL: greater than or equal to 190 mg/dL HDL 54 >40 mg/dL Desirable HDL: greater than 40 mg/dL Note: This HDL assay may give artificially low results in patients with liver disease. Vit D 25-OH Tot 59.4 >30 ng/mL Health Based Reference Values* < 20 ng/mL Deficient 20-30 ng/mL Insufficient > 30 ng/mL Sufficient *Leighton BOWMAN. N Engl J Med. 2007;357:266-280 Care must be taken in interpreting Vitamin D results from different laboratories and methodologies. Published data demonstrated that results from patients undergoing hemodialysis may show a negative bias when tested with various automated 25-OH vitamin D assays when compared to LC-MS/MS. When testing samples from patients whose predominant form of Vitamin D is Vitamin D2, such as patients receiving Vitamin D2 supplementation, results that are subtherapeutic should be confirmed with another method such as LC-MS/MS. Free T4 1.17 0.71-1.85 ng/dL TSH 3rd Gen. 5.18 H 0.32-4.0 uIU/mL Note: A sustained TSH level above 2.5 uIU/mL may war rant further investigation. TSH 3rd Generation ([facility]) Coding Level of Care Code Est Pt Prev Care >65y(05741) Diagnoses Annual visit for general adult medical examination with abnormal findings Z00.01 Dyslipidemia E78.5 Acquired hypothyroidism E03.9 Advanced directives, counseling/discussion Z71.89 Additional Codes JIM-7 Assessment Billing - JIM-7 Assessment Tool: JIM-7 Assessment 00889 ([id number]) PHQ-9 - 46012 - PHQ-9 Billing: Yes ([id number]) Vital Signs *Quality* - Advance Care Planning discussion: Completed/Scanned ([id number]) Vital Signs *Quality* - Time spent: 16-45 minutes ([id number]) Assessment & Plan Assessment & Plan (1) Annual visit for general adult medical examination with abnormal findings: Code(s): Z00. - Encounter for general adult medical examination with abnormal findings Plan: Reviewed with patient recent fasting lab results.. Continue regular dental visit every 6 months and regular eye exams, at least every 2 years. Take adequate calcium in diet and vitamin-D 3 at 2000 IU per cap once a day, in addition to weight-bearing exercises to help maintain good muscle tone and weight control. Instructed to do self-breast exam, and continue to get yearly mammogram. Cologuard testing ordered, patient does not want to get colonoscopy procedure. Bone density scan ordered to be done together with her mammogram. Vaccinations except for the shingles vaccine, reminded to get it done, given at the pharmacy (2) Dyslipidemia: Code(s): E78.5 - Hyperlipidemia, unspecified Category: Medical Plan: Reviewed recent fasting lipid profile with patient with levels within normal limits except for elevated LDL cholesterol. . Continue lovastatin 20 mg daily , in addition to adherence to low-cholesterol diet and regular exercise, at least 30 minutes 3 to 4 times a week. Advised patient to make healthy food choices, eat more fruits, vegetables, whole grains, wild caught fish and low- fat dairy. Limit amount of meat and fried or fatty food products, as well as processed foods and fast foods. Follow-up scheduled with repeat fasting lipid panel in 6 months. (3) Acquired hypothyroidism: Code(s): E03.9 - Hypothyroidism, unspecified Category: Medical Plan: TSH slightly elevated but free T4 within normal limits. Continue with levo thyroxine 88 mcg daily (4) Advanced directives, counseling/discussion: Code(s): Z71.89 - Other specified counseling Plan: Initiated the conversation about Advanced Directives. Advanced Directives help patients prepare for current and future decisions about their medical treatment and place of care. Discussed with patient that it is a process where a patients current condition and prognosis are reviewed, their wishes for information regarding their illness are elicited, and likely medical dilemmas are presented and options discussed. Healthcare proxy form completed today. The form can be amended as needed, reviewed yearly and make changes as needed Orders: Orders XR DEXA axial skeleton 08/19/25 Z13.820 - Encounter for screening for osteoporosis, Z78.0 - Asymptomatic menopausal state Aspartate Amino Transferase 6 Months E03.9 - Hypothyroidism, unspecified, E78.5 - Hyperlipidemia, unspecified Alanine Aminotransferase 6 Months E03.9 - Hypothyroidism, unspecified, E78.5 - Hyperlipidemia, unspecified Lipid Panel 6 Months E03.9 - Hypothyroidism, unspecified, E78.5 - Hyperlipidemia, unspecified Thyroid Stimulating Hormone 6 Months E03.9 - Hypothyroidism, unspecified, E78.5 - Hyperlipidemia, unspecified Free T4 (Free Thyroxine) 6 Months E03.9 - Hypothyroidism, unspecified, E78.5 - Hyperlipidemia, unspecified Referrals Cologuard Test Z12.11 - Encounter for screening for malignant neoplasm of colon, Z12.12 - Encounter for screening for malignant neoplasm of rectum
== END 2024-09-09 14:13 | disposition home or self-care (01) ==
PROVIDERS: PCP Internal Medicine; Visit Provider Internal Medicine
DX: Z00.01 Encounter for general adult medical examination with abnormal findings (principal); E78.5 Hyperlipidemia, unspecified; E03.9 Hypothyroidism, unspecified; Z71.89 Other specified counseling

== ENCOUNTER → 2024-09-09 12:46 | Outpatient (BNVA) | payer MEDICARE, SELFPAY | PROVIDERS: PCP Internal Medicine; Visit Provider Internal Medicine | DX: Z00.01 Encounter for general adult medical examination with abnormal findings (principal); E78.5 Hyperlipidemia, unspecified; E03.9 Hypothyroidism, unspecified; Z71.89 Other specified counseling | CPT/HCPCS: 96127; 99397; 99497 ==

== ENCOUNTER 2025-02-22 08:31 | Outpatient (REF) | payer MEDICARE, SELFPAY ==
[2025-02-22 11:25] LABS: Hemoglobin A1C 136.9458 umol/L; Total Hemoglobin (HGBA1C) 3569.8503 umol/L
[2025-02-22 11:36] LABS: Alanine Aminotransferase 25 U/L (0-31); Aspartate Amino Transferase 32 U/L (5-31); Cholesterol 214 mg/dL (<200); HDL Cholesterol 52 mg/dL (>40); Triglycerides 107 mg/dL (<150)
[2025-02-22 11:58] LABS: Free T4 (Free Thyroxine) 1.11 ng/dL (0.71-1.85); Thyroid Stimulating Hormone 7.51 uIU/mL (0.32-4.0)
== END 2025-02-22 08:32 | disposition home or self-care (01) ==
LOC: HO.HMGCLDS 08:31
PROVIDERS: PCP Internal Medicine; Visit Provider Internal Medicine
DX: R73.01 Impaired fasting glucose (principal); E78.5 Hyperlipidemia, unspecified; E03.9 Hypothyroidism, unspecified
CPT/HCPCS: 36415; 80061; 83036; 84439; 84443; 84450; 84460

== ENCOUNTER 2025-03-05 13:49 | Outpatient (AMB) | payer MEDICARE, SELFPAY ==
--- NOTE | 2025-03-05 14:06 | A.OFFVIS_ITS ---
Vital Signs 03/05/25 14:09 Height 5 ft 6 in Weight 152 lb 1.903 oz BMI 24.5 BP 149/88 H Blood Pressure Location Lt brachial Position Sitting Pulse 84 Intake Visit Reasons: [place] screening +cologaurd Intake Note: Patricia presents in the office as a colonoscopy screening and pos cologuard. CC: She states that her TSH is a little high but she has a appt with her Dr for that. Nuclear Auxiliary Operator Required: No Allergies azithromycin (From ZITHROMAX) Allergy (Unknown, Verified 03/05/25 14:09) HIVES, severe hives pravastatin Allergy (Unknown, Verified 03/05/25 14:09) hives atorvastatin Adverse Reaction (Unknown, Verified 03/05/25 14:09) muscle cramps HPI HPI [place] screening +cologaurd: Details: 69 year old? female here today for pre colonoscopy screening.? Patient was sent to us by her PCP.? Patient had colonoscopy over 10 years ago. Patient had normal colonoscopy then. In September Cologuard was done by her PCP and came back positive.? Patient denies any gastrointestinal symptoms in the past or at present.? Denies any personal or family history of gastrointestinal disease, colon polyps, or CRC.? Denies history of difficulty with sedation or anesthesia in the past.? Negative for history of sleep apnea.? Denies any history of cardiac, renal, pulmonary, or hepatic disease.?? No history of infectious? disea ses like hepatitis A, B, C, HIV or tuberculosis.? Patient is not on any anticoagulation PFSH Medical History Positive colorectal cancer screening using Cologuard test History of shingles Polyarthralgia Varicose veins of both lower extremities with pain Family history of breast cancer Postmenopause Colon cancer screening Dyslipidemia Acquired hypothyroidism Periorbital cellulitis Surgical History H/O colonoscopy History of breast biopsy Hx of cholecystectomy History of appendectomy Family History Father Chronic heart disease COPD (chronic obstructive pulmonary disease) Restrictive lung disease Afib CAD (coronary artery disease) Diabetes mellitus Mother Type 2 diabetes mellitus Arthritis Breast cancer Cervical cancer Glaucoma CAD (coronary artery disease) Brother Parkinson disease Sister Non Hodgkin's lymphoma Uterine cancer, Onset Age: 56 Sister No problems noted. Daughter No problems noted. Daughter No problems noted. Sister Breast cancer Social History Household Members: None Housing: Other Housing Other:: mobile home Alcohol intake: current Alcohol intake frequency: holidays/special occasions only Patient Tobacco Use Status: Never used Tobacco e-Cigarette/Vaping Use: Never Used service: No Current occupational status: retired Cognitive needs: No Hearing needs: No Vision needs: Yes Female Reproductive History Menstrual Age of Menarche: 13 Review of Systems Const Denies weight gain and Denies weight loss ENT Reports no additional complaints, Denies dysphagia and Denies odynophagia Card Reports no additional complaints Resp Reports no additional complaints GI Denies abdominal pain, Denies belching, Denies melena, Denies bloating, Denies change in bowel habits, Denies dysphagia, Denies excessive flatus, Denies dyspepsia, Denies heartburn, Denies diarrhea, Denies loose stools, Denies nausea, Denies odynophagia and Denies vomiting Musc Reports no additional complaints Neuro Reports no additional complaints Psych Reports no additional complaints Endo Reports no additional complaints Physical Exam Vital Signs: Last Vital Signs Pulse 84 03/05/25 14:09 BP 149/88 H 03/05/25 14:09 BMI result Body Mass Index 24.5 Const General: healthy appearing, no acute distress and well developed Nutritional Appearance: well nourished Orientation/consciousness: patient oriented x3 Resp Effort & Inspection: normal respiratory effort, able to speak in complete sentences, no tracheal deviation and symmetric chest movement Auscultation: clear to auscultation bilaterally Cardio Rate: regular rate GI Inspection: Yes normal to inspection and No distended Palpation (GI): Soft to palpation, not firm, nontender and No hepatosplenomegaly present Auscultation: normal bowel sounds General: Yes no CVA tenderness Back/Spine/Pelvis Back: no CVA tenderness Skin General skin exam: elasticity normal, turgor normal and dry skin Neuro General: patient oriented x3 Psych Appearance: grossly normal Mental Status: mental status grossly normal Assessment & Plan Assessment & Plan (1) Positive colorectal cancer screening using Cologuard test: Code(s): R19.5 - Other fecal abnormalities Category: Medical (2) Screen for colon cancer: Code(s): Z12.11 - Encounter for screening for malignant neoplasm of colon Plan Patient denies any GI, cardiac or respiratory symptoms.? Denies any issues with anesthesia in the past.? Denies any history of sleep apnea.? No history infectious diseases in the past or present.? Not on any anticoagulation therapy.? No family or personal history of colon cancer or polyps.? Positive Cologuard in September of 2024. Message sent to surgical schedulers to book procedure for patient. Patient denies melena, hematochezia, unintentional weight loss or ribbon like stools.? Discussed at length the pre-procedure,? prep, diet & medications as well as what to expect prior, during and after the procedure.?? Stressed the importance of good bowel prep.? Recommended the use of Vaseline or Calmoseptine OTC & baby wipes with bowel movements to promote comfort.? ?Patient verbalizes understanding and agrees to plan of care.? She was given the opportunity to ask questions and all questions answered.? We will see her after the procedure.? Medications: New bisacodyl (Dulcolax (bisacodyl)) take 4 tabs at noon the day before your colonoscopy 20 mg (4 x 5 mg) PO ONCE 4 tabs 0RF constipation 1 day Z12.11 - Encounter for screening for malignant neoplasm of colon polyethylene glycol 3350 (Miralax) As directed by gastroenterology department at [facility] 238 grams PO ONCE 238 grams 0RF Z12.11 - Encounter for screening for malignant neoplasm of colon Coding Level of Care Code New Pt Level 3 (51981) Diagnoses Positive colorectal cancer screening using Cologuard test R19.5 Screen for colon cancer Z12.11 Time Spent (min) 40 Comment 30 minutes spent with patient and additional 10 minutes spent reviewing her records
[2025-03-05 14:09] VITALS: BP 149/88; PULSE 84; BMI 24.5
--- OUTSIDE RECORDS SUMMARY | 2025-03-05 14:11 | XMS_ITS | Patient Health Record ---
Author Organization [facility] Address [address] [place] [address] Care Team Providers Care Buttonholer Name Role Phone Luisana VICTOR, Arely Carrillo Primary Care Provider Un available Black, Rosy Unavailable [phone] Allergies Allergen (clinical drug ingredient) Drug/Non Drug Allergy documented on EMR Reaction Allergy Type Onset Date Status atorvastatin Atorvastatin Calcium muscle cramps Drug Allergy Active azithromycin Azithromycin severe hives Drug Allergy Active pravastatin Pravastatin Sodium hives Drug Allergy Active Reason For Referral No Information Medications Medication SIG (Take, Route, Frequency, Duration) Notes Start Date End Date Status Vitamin D Active Lovastatin Active Levothyroxine Sodium Active Mobic 7.5 MG 1 tablet Orally Once a day; Duration: 30 day(s) Active Custom Orthotics as directed 02/27/2017 Active Centrum Silver Activ e Benzonatate 100 MG Oral; Duration: 6 Not-Taking Social History Tobacco use other than smoking: Question Answer Notes Are you an other tobacco user? No Problems Problem Type SNOMED Code ICD Code Onset Dates Problem Status W/U Status Risk Notes Problem Localized, primary osteoarthritis of the ankle and/or foot (683836220) Primary osteoarthrit is, right ankle and foot (M19.071) Active confirmed Problem Other hammer toe(s) (acquired), right foot (M20.41) Active confirmed Plan Of Treatment Pending Test Test Name Order Date [id number] NAIL, 1-5 05/25/2015 [id number] NAIL, 1-09/21/2015 Insurance Providers Payer Name Payer Address Payer Phone Subscriber Number Group Number Insured Name Patient Relationship to Insured Coverage Start Date Coverage End Date C[employer]a [address] [place], [place] [phone] [id number] Patricia Chaney Self - patient is the insured Medical (General) History Medical History History ICD Code Hypothyroidism Hyperlipidemia Diverticulosis Back pain Arthritis Cholesterol Measles Mumps Chicken pox Surgical History Surgery Date(Month/Year) colonoscopy 2011 appendectomy 1989 cholecystectomy 1989 breast biopsy, left gall bladder
== END 2025-03-05 18:58 | disposition home or self-care (01) ==
LOC: HO.HGI 13:50
PROVIDERS: PCP Internal Medicine; Visit Provider Nurse Practitioner Family
DX: R19.5 Other fecal abnormalities (principal); Z01.818 Encounter for other preprocedural examination; Z12.11 Encounter for screening for malignant neoplasm of colon
CPT/HCPCS: 99203

== ENCOUNTER → 2025-03-05 13:49 | Outpatient (BNVA) | payer MEDICARE, SELFPAY | PROVIDERS: PCP Internal Medicine; Visit Provider Nurse Practitioner Family | DX: Z01.818 Encounter for other preprocedural examination (principal); R19.5 Other fecal abnormalities | CPT/HCPCS: 99202 ==

== ENCOUNTER 2025-03-07 09:51 | Outpatient (AMB) | payer MEDICARE, SELFPAY ==
--- NOTE | 2025-03-07 09:53 | A.OFFPC_ITS ---
Intake Visit Reasons: med management-thyroid Accompanied by: Self / Same As Patient Allergies azithromycin (From ZITHROMAX) Allergy (Unknown, Verified 03/07/25 09:56) HIVES, severe hives pravastatin Allergy (Unknown, Verified 03/07/25 09:56) hives atorvastatin Adverse Reaction (Unknown, Verified 03/07/25 09:56) muscle cramps Medication List - Last Reconciled 03/07/25 by Arely Lieberman MD acetaminophen ER (Tylenol 8 Hour) 650 mg PO Q12H bisacodyl (Dulcolax (bisacodyl)) 20 mg (4 x 5 mg) PO ONCE 1 day fexofenadine (Wal-Fex Allergy) 60 mg PO DAILY PRN ibuprofen 200 mg PO Q6H PRN levothyroxine 88 mcg PO DAILY lovastatin 20 mg PO BEDTIME multivitamin (Daily Multi-Vitamin tablet) 1 tab PO DAILY ondansetron 4 mg PO Q6H PRN polyethylene glycol 3350 (Miralax) 238 grams PO ONCE [Vitamin D3 PO DAILY] Tobacco use date assessed: 09/09/24 Dental Screening Dental Screen Date: 09/09/24 HPI med management-thyroid HPI Details - The patient is a 69-year-old female pr esenting with symptoms of constipation, fatigue, and insomnia. She states that she has been feeling extremely tired by 2 PM, necessitating a nap. - has recurrent insomnia, takes Tylenol PM - Hypothyroidism is being treated with l evothyroxine, with recent TSH levels showing i improvement in her levels but still not within normal limits. Her free T4 however is within normal limits. - The patient is on lovastatin for hyper lipidemia, with recent fasting lipids showed elevated LDL cholesterol higher than last check. = has positive Cologuard results, already seen by GI clinic and patient states that she will be scheduled for a diagnostic colonoscopy . [facility] Medical History Positive colorectal cancer screening using Cologuard test History of shingles Polyarthralgia Varicose veins of both lower extremities with pain Family history of breast cancer Postmenopause Colon cancer screening Dyslipidemia Acquired hypothyroidism Periorbital cellulitis Surgical History H/O colonoscopy History of breast biopsy Hx of cholecystectomy History of appendectomy Family History Father Chronic heart disease COPD (chronic obstructive pulmonary disease) Restrictive lung disease Afib CAD (coronary artery disease) Diabetes mellitus Mother Type 2 diabetes mellitus Arthritis Breast cancer Cervical cancer Glaucoma CAD (coronary artery disease) Brother Parkinson disease Sister Non Hodgkin's lymphoma Uterine cancer, Onset Age: 56 Sister No problems noted. Daughter No problems noted. Daughter No problems noted. Sister Breast cancer Social History Household Members: None Housing: Other Housing Other:: mobile home Alcohol intake: current Alcohol intake frequency: holidays/special occasions only Patient Tobacco Use Status: Never used Tobacco e-Cigarette/Vaping Use: Never Used service: No Current occupational status: retired Cognitive needs: No Hearing needs: No Vision needs: Yes Female Reproductive History Menstrual Age of Menarche: 13 Questionnaire PHQ-9 Over the last 2 weeks, how often have you been bothered by any of the following problems? 1. Little interest or pleasure in doing things: not at all 2. Feeling down, depressed, or hopeless: not at all 3. Trouble falling or staying asleep, or sleeping too much: more than half the days 4. Feeling tired or having little energy: not at all 5. Poor appetite or overeating: not at all 6. Feeling bad about yourself - or that you are a failure or have let yourself or your family down: not at all 7. Trouble concentrating on things, such as reading the newspaper or watching television: not at all 8. Moving or speaking so slowly that other people could have noticed. Or the opposite - being so fidgety or restless that you have been moving around a lot more than usual: not at all 9. Thoughts that you would be better off or of hurting yourself in some way: not at all Total score: 2 Depression Screening Interpretation: Negative Depression Screening Done: Yes 69999 - PHQ-9 Billing: Yes Source: Developed by Drs. Sky Waterman, Elsa Arevalo, Harinder William and colleagues, with an educational yajaira from [employer] Thrive Questionnaire Date Thrive assessed: 08/22/24 I am a: Patient What is your living situation today?: I have a steady place to live Within the past 12 months, did the food you bought not last and you didn't have the money to get more?: Never true Within the past 12 months, did you worry whether your food would run out before you got money to buy more?: Never true Do you have trouble paying for medicines?: No Do you have trouble getting transportation to medical appointments?: Yes Do you have trouble paying your heating and electricity bill?: No Do you have trouble taking care of your child, family member or friend?: No Do you have trouble with day-to-day activities such as bathing, preparing meals, shopping, managing finances, etc.?: No Are you currently unemployed and looking for a job?: No Are you interested in more education?: No Please select the resources that you would like help with: Transportation Currently or been in a relationship where the following occur: No concerns reported THRIVE Score: 1 JIM-7 AMB Questionnaire JIM-7 Date JIM - 7 assessed: 03/07/25 Feeling nervous, anxious, or on edge: 0 = Not at all Not being able to stop or control worryin = Not at all Worrying too much about different things: 0 = Not at all Trouble relaxin = Not at all Being so restless that it is hard to sit still: 0 = Not at all Becoming easily annoyed or irritable: 0 = Not at all Feeling afraid as if something awful might happen: 0 = Not at all Total JIM-7 score (0-4 normal; 5-9 mild; 10-14 moderate; 15-21 severe): 0 Source: Developed by Drs. Sky Waterman, Elsa Arevalo, Harinder William and colleagues, with an educational yajaira from [employer] JIM-7 Assessment Billing JIM-7 Assessment Tool: JIM-7 Assessment 29558 Review of Systems Const Reports as per HPI and Reports no additional complaints Eyes Denies change in vision ENT Reports no additional complaints Card Reports no additional complaints Resp Reports no additional complaints GI Denies abdominal pain, Denies belching, Denies melena, Denies bloating, Denies change in bowel habits, Denies excessive flatus, Denies dyspepsia, Denies heartburn, Denies diarrhea, Denies loose stools, Denies nausea and Denies vomiting Reports no additional complaints Musc Reports no additional complaints Neuro Reports no additional complaints Psych Reports no additional complaints Endo Reports no additional complaints Physical exam (Primary Care) Tobacco/Smoking Status: Tobacco use Status Tobacco use date assessed 09/09/24 03/07/25 09:55 Patient Tobacco Use Status Never used Tobacco 03/07/25 09:55 e-Cigarette/Vaping Use Never Used 03/07/25 09:55 PHQ-9: PHQ-9 Score PHQ-9: Total score 2 03/07/25 10:06 Depression Screening Interpretation: Negative Thrive Assessment: Date of Thrive Assessment Date Thrive assessed 08/22/24 03/07/25 09:55 Currently or been in a relationship where the following occur: No concerns reported Telehealth Telehealth Telehealth Platform: [facility] Location of provider rendering services: practice address Location of patient: address on file Patient Identification confirmed using: Name, : Yes Telehealth method: video Patient verbally consented to treatment: Yes Patient verbally consented to billing insurance company: Yes Patient informed of any privacy concerns related to visit: Yes Minutes spent on Phone/Video with Pt.: 20 Results Reviewed Results Reviewed: Name: Patricia Chaney Age/Sex: 69/F : 1955 Unit#: [id number] Attend Dr: Arely Lieberman MD Re02/22/25 Status: DEP REF Location: [facility] Disch: SPEC : [id number] JESSY: 02/22/25 STATUS: COMP REQ : [id number] RECD: 02/22/25-[address]: Arely Lieberman MD COMP: 02/22/25 ENTERED: 02/22/25-[address]: ORDERED: Hgb A1c Test Result Flag Reference A1c % 5.7 <6.0 % Hemoglobin A1C Reference Range Adults: 4.8 - 6.0 % Non diabetic: < 6.0 % Goal: < 7.0 % Additional Action Suggested: > 8.0 % Note: Hemoglobin A1c results are invalid for patients with abnormal amounts of HbF. Blood transfusions may impact the HbA1c concentration in the patient sample. Est. Avg. Gluc 117 mg/dL eAG = Estimated average glucose which is %A1C expressed as average glucose, using the formula of the L0S-Rfupfol Average Glucose study (ADAG), Diabetes Care, Vol.31,#8, 2007 Name: Patricia Chaney Age/Sex: 69/F : 1955 Unit#: [id number] Attend Dr: Arely Lieberman MD Re02/22/25 Status: DEP REF Location: [facility] Disch: SPEC : [id number] JESSY: 02/22/25 STATUS: COMP REQ : [id number] RECD: 02/22/[address]: Arely Lieberman MD COMP: 02/22/25 ENTERED: 02/22/[address] [facility] [address]: ORDERED: AST, ALT, Lipid Panel, Free T4, TSH Test Result Flag Reference AST (GOT) 32 H 5-31 U/L ALT (GPT) 25 0-31 U/L Triglyceride 107 <150 mg/dL Desirable Triglyceride: less than 150 mg/dL Borderline High Triglyceride 150-199 mg/dL High Triglyceride: 200-499 mg/dL Very High Triglyceride: greater than or equal to 5OO mg/dL Cholesterol 214 H <200 mg/dL Desirable Cholesterol: less than 200 mg/dL Borderline High Cholesterol: 200-239 mg/dL High Cholesterol: greater than 239 mg/dL LDL Calculated 141 H <100 mg/dL Desirable LDL: less than 100 mg/dL Near Optimal/Above Optimal LDL: 110-129 mg/dL Borderline High LDL: 130-159 mg/dL High LDL: 160-189 mg/dL Very High LDL: greater than or equal to 190 mg/dL HDL 52 >40 mg/dL Desirable HDL: greater than 40 mg/dL Note: This HDL assay may give artificially low results in patients with liver disease. Free T4 1.11 0.71-1.85 ng/dL TSH 3rd Gen. 7.51 H 0.32-4.0 uIU/mL Note: A sustained TSH level above 2.5 uIU/mL may warrant further investigation. TSH 3rd Generation ([facility]) Coding Level of Care Code Tele Est Pt Level 4 (27709) Diagnoses Acquired hypothyroidism E03.9 Dyslipidemia E78.5 Impaired fasting glucose R73.01 Additional Codes JIM-7 Assessment Billing - JIM-7 Assessment Tool: JIM-7 Assessment 72773 ([id number]) PHQ-9 - 24954 - PHQ-9 Billing: Yes ([id number]) Assessment & Plan Assessment & Plan (1) Acquired hypothyroidism: Code(s): E03.9 - Hypothyroidism, unspecified Category: Medical (2) Dyslipidemia: Code(s): E78.5 - Hyperlipidemia, unspecified Category: Medical (3) Impaired fasting glucose: Code(s): R73.01 - Impaired fasting glucose Plan will increase the dose of levothyroxine to 100 mcg to manage hypothyroidism, with a follow-up TSH test scheduled in three months . The lovastatin dose will be increased to 40 mg to better control hyperlipidemia, with a follow-up lipid panel also planned in three months. The patient is advised to try Unisom as a sleep aid to address insomnia, while avoiding excessive use of Tylenol PM due to its diphenhydramine content, which may contribute to daytime fatigue. A colonoscopy is scheduled following a positive fecal immunochemical test FIT) to ensure comprehensive colorectal screening. Patient was informed and verbally consented to the use of an ambient scribe for clinic note documentation during this visit. Orders: Orders Hemoglobin A1c 05/24/25 E03.9 - Hypothyroidism, unspecified, E78.5 - Hyperlipidemia, unspecified, R73.01 - Impaired fasting glucose Basic Metabolic Panel Fasting 05/24/25 E03.9 - Hypothyroidism, unspecified, E78.5 - Hyperlipidemia, unspecified, R73.01 - Impaired fasting glucose Lipid Panel 05/24/25 E03.9 - Hypothyroidism, unspecified, E78.5 - Hyperlipidemia, unspecified, R73.01 - Impaired fasting glucose Free T4 (Free Thyroxine) 05/24/25 E03.9 - Hypothyroidism, unspecified, E78.5 - Hyperlipidemia, unspecified, R73.01 - Impaired fasting glucose Thyroid Stimulating Hormone 05/24/25 E03.9 - Hypothyroidism, unspecified, E78.5 - Hyperlipidemia, unspecified, R73.01 - Impaired fasting glucose Aspartate Amino Transferase 05/24/25 E03.9 - Hypothyroidism, unspecified, E78.5 - Hyperlipidemia, unspecified, R73.01 - Impaired fasting glucose Alanine Aminotransferase 11/01/25 E03.9 - Hypothyroidism, unspecified, E78.5 - Hyperlipidemia, unspecified, R73.01 - Impaired fasting glucose Medications: Changed From lovastatin 20 mg PO BEDTIME 90 tabs 0RF E78.5 - Hyperlipidemia, unspecified To lovastatin 40 mg PO BEDTIME 90 tabs 1RF 3 months E78.5 - Hyperlipidemia, unspecified From levothyroxine 88 mcg PO DAILY 90 tabs 4RF To levothyroxine 100 mcg PO DAILY 90 tabs 4RF
--- OUTSIDE RECORDS SUMMARY | 2025-03-07 10:06 | XMS_ITS | Patient Health Record ---
Author Organization [facility] Address [address] [place] [address] Care Team Providers Care Donor Recruiter Name Role Phone Luisana VICTOR, Arely Carrillo Primary Care Provider Un available Black, Rosy Unavailable [phone] Allergies Allergen (clinical drug ingredient) Drug/Non Drug [...] Problem Status W/U Status Risk Notes Problem Primary osteoarthriti s, right ankle and foot (M19.071) Active confirmed Problem Acquired hammer toe of right foot ([id number]) Other hammer toe(s) (acquired), right foot (M20.41) Active confirmed Plan Of Treatment Pending Test Test Name Order Date [id number] NAIL, 1-5 05/25/2015 [id number] NAIL, 1-09/21/2015 Insurance Providers Payer Name Payer Address Payer Phone Subscriber Number Group Number Insured Name Patient Relationship to Insured Coverage Start Date Coverage End Date C[employer] [address] [place] [phone] [id number] Patricia Chaney Self - patient is the insured Medical (General) History Medical History History ICD Code Hypothyroidism Hyperlipidemia Diverticulosis Back pain Arthritis Cholesterol Measles Mumps Chicken pox Surgical History Surgery Date(Month/Year) colonoscopy 2011 appendectomy 1989 cholecystectomy 1989 breast biopsy, left gall bladder
== END 2025-03-07 11:35 | disposition home or self-care (01) ==
LOC: HO.HMCC 09:51
PROVIDERS: PCP Internal Medicine; Visit Provider Internal Medicine
DX: E03.9 Hypothyroidism, unspecified (principal); E78.5 Hyperlipidemia, unspecified; R73.01 Impaired fasting glucose

== ENCOUNTER → 2025-03-07 09:51 | Outpatient (BNVA) | payer MEDICARE, SELFPAY | PROVIDERS: PCP Internal Medicine; Visit Provider Internal Medicine | DX: R73.01 Impaired fasting glucose (principal); E03.9 Hypothyroidism, unspecified; K59.00 Constipation, unspecified; R53.83 Other fatigue; G47.00 Insomnia, unspecified; E78.5 Hyperlipidemia, unspecified | CPT/HCPCS: 96127 ==

== ENCOUNTER 2025-05-07 16:15 | Emergency (ER) | payer MEDICARE, MEDICAID, SELFPAY ==
--- NOTE | ~2025-05-07 | XR_ITS ---
CLINICAL HISTORY: pain limited ROM 3 view right shoulder Comparison: None provided Findings: Bones intact. No dislocations. Mild acromioclavicular osteoarthritis. No erosions. No radiopaque foreign body. IMPRESSION: 1. No acute findings This document has been electronically signed by: Cherelle Giang MD on 05/07/2025 18:09:57
[2025-05-07 16:21] VITALS: BP 150/86; PULSE 99; RESP 16; TEMP 36.2; O2SAT 98; BMI 25.2
--- NOTE | 2025-05-07 16:21 | ED.GENADULT ---
HPI - General Adult General Chief complaint: Extremity Injury, Upper Stated complaint: R shoulder, no injury Time Seen by Provider: 05/07/25 19:22 Source: patient Mode of arrival: ambulatory Limitations: no limitations History of Present Illness ED Provider: Dr. Chiu HPI narrative: This is a 69-year-old female presented hospital today for right shoulder pain. It has been going on for past couple of months. Worsening with this past week. She has difficulty moving her right shoulder due to the pain. Denies any traumatic injury. She states she does have history of a rotator cuff injury in the past. No signs of fever no sign of redness over the right shoulder. Related Data Home Medications ?Medication ?Instructions ?Recorded ?Confirmed acetaminophen 650 mg 650 mg PO Q12H 09/08/20 03/07/25 tablet,extended release (Tylenol 8 Hour) multivitamin (Daily Multi-Vitamin 1 tab PO DAILY 10/28/20 03/07/25 tablet) Vitamin D3 PO DAILY 09/09/21 03/07/25 fexofenadine 60 mg tablet (Wal-Fex 60 mg PO DAILY PRN 01/26/24 03/07/25 Allergy) ibuprofen 200 mg tablet 200 mg PO Q6H PRN 09/09/24 03/07/25 Previous Rx's ?Medication ?Instructions ?Recorded ondansetron 4 mg disintegrating 4 mg PO Q6H PRN nausea and 07/17/24 tablet vomiting #14 tabs bisacodyl 5 mg tablet,delayed 20 mg (4 x 5 mg) PO ONCE 03/05/25 release (Dulcolax (bisacodyl)) constipation 1 day #4 tabs polyethylene glycol 3350 17 238 g PO ONCE #238 grams 03/05/25 gram/dose oral powder (Miralax) lovastatin 40 mg tablet 40 mg PO BEDTIME 3 months #90 tabs 03/07/25 levothyroxine 88 mcg tablet 88 mcg PO DAILY #90 tabs 04/28/25 (Synthroid) lidocaine 5 % topical patch 1 patch topical DAILY #15 ea 05/07/25 methylprednisolone 4 mg tablets in 4 mg PO PER PKG DIR #21 ea 05/07/25 a dose pack (Medrol (Jas)) oxycodone 5 mg capsule 5 mg PO Q8H PRN pain #14 caps 05/07/25 Allergies Allergy/AdvReac Type Severity Reaction Status Date / Time azithromycin (From ZITHROMAX) Allergy Unknown HIVES, Verified 05/07/25 16:22 severe hives pravastatin Allergy Unknown hives Verified 05/07/25 16:22 atorvastatin AdvReac Unknown muscle Verified 05/07/25 16:22 cramps Review of Systems Review of Systems: Pertinent review of systems as mentioned in HPI. All other system otherwise negative. [facility]LY [facility] Past Medical History FOR[facility]LY [facility], [facility]1983 Narrative: Hypothyroidism, dyslipidemia Medical History Positive colorectal cancer screening using Cologuard test History of shingles Polyarthralgia Varicose veins of both lower extremities with pain Family history of breast cancer Postmenopause Colon cancer screening Dyslipidemia Acquired hypothyroidism Periorbital cellulitis Surgical History H/O colonoscopy History of breast biopsy Hx of cholecystectomy History of appendectomy Family History Family History Father Chronic heart disease COPD (chronic obstructive pulmonary disease) Restrictive lung disease Afib CAD (coronary artery disease) Diabetes mellitus Mother Type 2 diabetes mellitus Arthritis Breast cancer Cervical cancer Glaucoma CAD (coronary artery disease) Brother Parkinson disease Sister Non Hodgkin's lymphoma Uterine cancer, Onset Age: 56 Sister No problems noted. Daughter No problems noted. Daughter No problems noted. Sister Breast cancer Social History Social History Household Members: None Housing: Other Housing Other:: mobile home Alcohol intake: current Alcohol intake frequency: does not drink Patient Tobacco Use Status: Never used Tobacco Smoked in Last 30 Days: No e-Cigarette/Vaping Use: Never Used Use of substances other than those prescribed or required for medical reasons: No Advance Directives: Yes Advance Directives on File: Yes Advance Directives Date on File: 09/09/24 service: No Current occupational status: retired Cognitive needs: No Hearing needs: No Vision needs: Yes Physical Exam ED Exam Exam: General: Pleasant, no distress, interacting appropriately Head: Normacephalic, atraumatic Extremities: Right shoulder swelling appreciated on exam. CMS intact of the right upper extremity Neurological: Awake and alert, no facial droop noted Skin: Warm and dry Psychiatric: Appropriate mood and thoughts Vital Signs: Vital Signs - 24 hr 05/07/25 16:21 05/07/25 20:04 05/07/25 20:05 Temperature 97.2 F 97.0 F 97.0 F Pulse Rate 99 93 93 Respiratory Rate 16 20 20 Blood Pressure 150/86 H 151/87 H 151/87 H Pulse Oximetry 98 98 98 Oxygen Delivery Method Room Air Room Air Room Air BMI result Body Mass Index 25.2 Course Course Course Narrative: This is a Rapid Medical Examination (RME) performed by Valery Castro PA-C in triage. Full HPI, ROS, assessment and treatment plan per primary provider in the Main ED. Hx: Patient is a 69 yo female with a pmhx of polyarthralgia presenting for a CC of R shoulder pain x couple of months intermittently. Endorses recent increase of pain over the last week and a half. No recent injury or falls. Endorses loss of ROM, trouble completing ADL's. Received both the flu and covid vaccine last week, covid was administered in the R deltoid. Plan: xrs Medications Administered Discontinued Medications Generic Name Dose Route Start Last Admin Trade Name Freq PRN Reason Stop Dose Admin Prednisone 40 mg 05/07/25 19:56 05/07/25 20:03 Prednisone 20 Mg Tablet PO 05/07/25 19:57 40 mg ONCE ONE Administration Medical Decision Making Medical Decision Making [facility] Narrative: This is a 69-year-old female presented hospital today for right shoulder pain for the past week and a half. I did perform a bedside ultrasound. I was able to appreciate a right shoulder effusion. The shoulder does not appear to be erythematous on exam. I do not think this is infected shoulder. Patient's motor function distally and pulse and sensation is intact. We will plan to discharge patient with a Medrol Dosepak, oxycodone will be prescribed for temporary pain management. Encouraged her to take Tylenol and ibuprofen around the clock for anti-inflammatory control. We will have her follow up with her primary care doctor. Patient is agreeable to this plan all questions addressed. Patient will be discharged. X-ray is negative for any fracture Differential Diagnosis Differential Diagnoses: The differential diagnosis associated with the presentation includes Right shoulder effusion, arthritis, rotator cuff injury Independent Interpretation I performed an independent interpretation of an: Plain X-Ray Radiology Impression Discussion of test interpretation with radiology: I have reviewed the radiologist's reading. Discharge Plan Discharge Clinical Impression: Effusion of shoulder joint, right Patient Disposition: Home, Self-Care Instructions: Swollen Shoulder Joint (ED) Additional Instructions: Take 1000mg tylenol every 8 hours. Ibuprofen 400mg every 8 hours Prescriptions: New methylprednisolone [Medrol (Jas)] 4 mg tablets,dose pack 4 mg PO PER PKG DIR Qty: 21 0RF lidocaine 5 % adhesive patch,medicated 1 patch topical DAILY Qty: 15 0RF Rx Instructions: leave on most painful area for up to 12 hrs oxycodone 5 mg capsule 5 mg PO Q8H PRN (Reason: pain) Qty: 14 0RF Rx Instructions: Partial Fill upon patient request. No Action levothyroxine [Synthroid] 88 mcg tablet 88 mcg PO DAILY Qty: 90 1RF ondansetron 4 mg tablet,disintegrating 4 mg PO Q6H PRN (Reason: nausea and vomiting) Qty: 14 0RF acetaminophen [Tylenol 8 Hour] 650 mg tablet extended release 650 mg PO Q12H multivitamin [Daily Multi-Vitamin] Tablet 1 tab PO DAILY Vitamin D3 1,000 units PO DAILY fexofenadine [Wal-Fex Allergy] 60 mg tablet 60 mg PO DAILY PRN ibuprofen 200 mg tablet 200 mg PO Q6H PRN bisacodyl [Dulcolax (bisacodyl)] 5 mg tablet,delayed release (DR/EC) 20 mg PO ONCE 1 Days Qty: 4 0RF Rx Instructions: take 4 tabs at noon the day before your colonoscopy polyethylene glycol 3350 [Miralax] 17 gram/dose powder 238 g PO ONCE Qty: 238 0RF Rx Instructions: As directed by gastroenterology department at [facility] lovastatin 40 mg tablet 40 mg PO BEDTIME 90 Days Qty: 90 1RF Interventions: ED Discharge Assessment Last Done: 05/07/25 20:04 Discharge Date/Time: 05/07/25 20:09 Print Language: Luxembourger
--- OUTSIDE RECORDS SUMMARY | 2025-05-07 19:39 | XMS_ITS | Patient Health Record ---
[facility] Address [address] [place] [address] Care Team Providers Care Mass Communications Instructor Name Role Phone Luisana VICTOR, Arely Carrillo Primary Care Provider Un available Black, Rosy Unavailable [phone] Allergies Allergen (clinical drug ingredient) Drug/Non Drug [...] primary osteoarthritis of the ankle and/or foot (308717382) Primary osteoarthrit is, right ankle and foot (M19.071) Active confirmed Problem Acquired hammer toe of right foot (6415053414245277) Other hammer toe(s) (acquired), right foot (M20.41) Active confirmed Plan Of Treatment Pending Test Test Name Order Date [id number] NAIL, 1-5 05/25/2015 [id number] NAIL, 1-09/21/2015 Insurance Providers Payer Name Payer Address Payer Phone Subscriber Number Group Number Insured Name Patient Relationship to Insured Coverage Start Date Coverage End Date Demarcus [address] [place], [place] [phone] [id number] Patricia Chaney Self - patient is the insured Medical (General) History Medical History History ICD Code Hypothyroidism Hyperlipidemia Diverticulosis Back pain Arthritis Cholesterol Measles Mumps Chicken pox Surgical History Surgery Date(Month/Year) colonoscopy 2011 appendectomy 1989 cholecystectomy 1989 breast biopsy, left gall bladder
[2025-05-07 20:04] VITALS: BP 151/87; PULSE 93; RESP 20; TEMP 36.1; O2SAT 98
[2025-05-07 20:05] VITALS: BP 151/87; PULSE 93; RESP 20; TEMP 36.1; O2SAT 98
--- NOTE | 2025-05-07 20:07 | PC.NURSE ---
reviewed discharge instructions with pt, pt verbalized understanding, no sign of distress.
== END 2025-05-07 20:09 | disposition home or self-care (01) ==
PROVIDERS: Emergency Provider Student in an Organized Health Care Education/Training Program; PCP Internal Medicine
DX: M25.411 Effusion, right shoulder (principal); M25.511 Pain in right shoulder
CPT/HCPCS: 73030; 99283; 99284

== ENCOUNTER → 2025-05-07 16:48 | Outpatient (BNV) | payer MEDICARE, MEDICAID, SELFPAY | PROVIDERS: PCP Internal Medicine; Visit Provider Radiology Diagnostic Radiology | DX: M19.011 Primary osteoarthritis, right shoulder (principal) | CPT/HCPCS: 73030 ==

== ENCOUNTER 2025-05-20 14:05 | Outpatient (AMB) | payer MEDICARE, MEDICAID, SELFPAY ==
[2025-05-20 14:28] VITALS: BP 138/80; PULSE 92; RESP 16; TEMP 36.6; O2SAT 98; BMI 25.3
--- NOTE | 2025-05-20 14:28 | MHC.PC.OV ---
Vital Signs 05/20/25 14:28 Height 5 ft 6 in Weight 157 lb BMI 25.3 BP 138/80 Blood Pressure Location Lt brachial Position Sitting Respiration 16 Pulse 92 Pulse Source Pulse Oximeter Temp 97.8 F Temp Source Oral Pulse Oximetry (%) 98 Oxygen Delivery Method Room Air Intake Visit Re[place] [facility] [place] stil having discomfort Intake Note: Pt is here today for [place] [facility] [place] Rt shoulder pain Recruiting Internship Required: No Allergies azithromycin (From ZITHROMAX) Allergy (Unknown, Verified 05/20/25 14:44) HIVES, severe hives pravastatin Allergy (Unknown, Verified 05/20/25 14:44) hives atorvastatin Adverse Reaction (Unknown, Verified 05/20/25 14:44) muscle cramps Medication List - Last Reconciled 05/20/25 by Arely Lieberman MD acetaminophen ER (Tylenol 8 Hour) 650 mg PO Q12H fexofenadine (Wal-Fex Allergy) 60 mg PO DAILY PRN ibuprofen 200 mg PO Q6H PRN levothyroxine (Synthroid) 88 mcg PO DAILY lovastatin 40 mg PO BEDTIME 3 months multivitamin (Daily Multi-Vitamin tablet) 1 tab PO DAILY ondansetron 4 mg PO Q6H PRN [Vitamin D3 PO DAILY] Tobacco use date assessed: 09/09/24 Dental Screening Dental Screen Date: 09/09/24 [place]PI [place] [facility] [place] stil having discomfort HPI Details 69-year-old lady here today for follow-up after recent ER visit where she presented with right shoulder pain which has present now for the last 2 weeks. Has no history of any injury or trauma. X-ray done at the ER showed no fracture, but showed mild acromioclavicular arthritis. Bedside ultrasound done at the ER on right shoulder showed presence of effusion. She was placed on a Medrol Dosepak and given oxycodone to take as needed for severe pain and Tylenol alternating with ibuprofen for [id number] pain control, with resolution of symptoms. [facility] Medical History (Updated 05/25/25 @ 23:35 by Arely Lieberman MD) Arthritis of right acromioclavicular joint Positive colorectal cancer screening using Cologuard test History of shingles Polyarthralgia Varicose veins of both lower extremities with pain Family history of breast cancer Postmenopause Colon cancer screening Dyslipidemia Acquired hypothyroidism Periorbital cellulitis Surgical History H/O colonoscopy History of breast biopsy Hx of cholecystectomy History of appendectomy Family History Father Chronic heart disease COPD (chronic obstructive pulmonary disease) Restrictive lung disease Afib CAD (coronary artery disease) Diabetes mellitus Mother Type 2 diabetes mellitus Arthritis Breast cancer Cervical cancer Glaucoma CAD (coronary artery disease) Brother Parkinson disease Sister Non Hodgkin's lymphoma Uterine cancer, Onset Age: 56 Sister No problems noted. Daughter No problems noted. Daughter No problems noted. Sister Breast cancer Social History Household Members: None Housing: Other Housing Other:: mobile home Alcohol intake: current Alcohol intake frequency: does not drink Patient Tobacco Use Status: Never used Tobacco e-Cigarette/Vaping Use: Never Used Advance Directives Date on File: 09/09/24 service: No Current occupational status: retired Cognitive needs: No Hearing needs: No Vision needs: Yes Female Reproductive History Menstrual Age of Menarche: 13 Questionnaire Thrive Questionnaire Date Thrive assessed: 08/22/24 I am a: Patient What is your living situation today?: I have a steady place to live Within the past 12 months, did the food you bought not last and you didn't have the money to get more?: Never true Within the past 12 months, did you worry whether your food would run out before you got money to buy more?: Never true Do you have trouble paying for medicines?: No Do you have trouble getting transportation to medical appointments?: Yes Do you have trouble paying your heating and electricity bill?: No Do you have trouble taking care of your child, family member or friend?: No Do you have trouble with day-to-day activities such as bathing, preparing meals, shopping, managing finances, etc.?: No Are you currently unemployed and looking for a job?: No Are you interested in more education?: No Please select the resources that you would like help with: Transportation Currently or been in a relationship where the following occur: No concerns reported THRIVE Score: 1 JIM-7 AMB Questionnaire JIM-7 Date JIM - 7 assessed: 03/07/25 Source: Developed by Drs. Sky Waterman, Elsa Arevalo, Harinder William and colleagues, with an educational yajaira from [employer]. Review of Systems Const All systems reviewed & are unremarkable except as noted in HPI and below Physical exam (Primary Care) Vital Signs: Last Vital Signs Temp 97.8 F 05/20/25 14:28 Pulse 92 05/20/25 14:28 Resp 16 05/20/25 14:28 BP 138/80 05/20/25 14:28 Pulse Ox 98 05/20/25 14:28 Oxygen Delivery Method Room Air 05/20/25 14:28 BMI result Body Mass Index 25.3 Tobacco/Smoking Status: Tobacco use Status Tobacco use date assessed 09/09/24 05/20/25 14:35 Patient Tobacco Use Status Never used Tobacco 05/20/25 14:35 e-Cigarette/Vaping Use Never Used 05/20/25 14:35 Thrive Assessment: Date of Thrive Assessment Date Thrive assessed 08/22/24 05/20/25 14:35 Currently or been in a relationship where the following occur: No concerns reported Const General: no acute distress Orientation/consciousness: patient oriented x3 Limitations: no limitations Neck Neck: Yes full ROM, Yes no lymphadenopathy and Yes supple GI Inspection: Yes normal to inspection Palpation (GI): Soft to palpation, nontender and no guarding Auscultation: normal bowel sounds Back/Spine/Pelvis Back: No back tenderness Neuro General: patient oriented x3, gait normal, moves all extremities, Normal light touch and pain sensation, no focal motor deficits and CN's II-XI intact bilaterally Extrem General: Yes full ROM, Yes no joint enlargement, Yes no calf tenderness and Yes normal gait Coding Level of Care Code Est Pt Level 3 (87376) Diagnoses Arthritis of right acromioclavicular joint M19.011 Assessment & Plan Assessment & Plan (1) Arthritis of right acromioclavicular joint: Code(s): M19.011 - Primary osteoarthritis, right shoulder Category: Medical Plan: Resolution of the pain with Medrol Dosepak, may take occasional Tylenol arthritis as needed or use Advil ointment cream as directed for pain control
--- OUTSIDE RECORDS SUMMARY | 2025-05-20 18:31 | XMS_ITS | Patient Health Record ---
[facility] Address [address] [place] [address] Care Team Providers Care Supervisor Treating And Pumping Name Role Phone Luisana VICTOR, Arely Carrillo Primary Care Provider Un available Black, Rosy Unavailable [phone] Allergies Allergen (clinical drug ingredient) Drug/Non Drug [...] primary osteoarthritis of the ankle and/or foot (297669774) Primary osteoarthrit is, right ankle and foot (M19.071) Active confirmed Problem Acquired hammer toe of right foot (3746712394919639) Other hammer toe(s) (acquired), right foot (M20.41) Active confirmed Plan Of Treatment Pending Test Test Name Order Date [id number] NAIL, 1-5 05/25/2015 [id number] NAIL, -09/21/2015 Insurance Providers Payer Name Payer Address Payer Phone Subscriber Number Group Number Insured Name Patient Relationship to Insured Coverage Start Date Coverage End Date Demarcus [address] [place], [place] [phone] [id number] Patricia Chaney Self - patient is the insured Medical (General) History Medical History History ICD Code Hypothyroidism Hyperlipidemia Diverticulosis Back pain Arthritis Cholesterol Measles Mumps Chicken pox Surgical History Surgery Date(Month/Year) colonoscopy 2011 appendectomy 1989 cholecystectomy 1989 breast biopsy, left gall bladder
== END 2025-05-20 15:54 | disposition home or self-care (01) ==
LOC: HO.HMCC 14:06
PROVIDERS: PCP Internal Medicine; Visit Provider Internal Medicine
DX: M19.011 Primary osteoarthritis, right shoulder (principal)

== ENCOUNTER → 2025-05-20 14:05 | Outpatient (BNVA) | payer MEDICARE, MEDICAID, SELFPAY | PROVIDERS: PCP Internal Medicine; Visit Provider Internal Medicine | DX: M19.011 Primary osteoarthritis, right shoulder (principal) | CPT/HCPCS: 99212 ==

== ENCOUNTER 2025-06-14 09:51 | Outpatient (REF) | payer MEDICARE, MEDICAID, SELFPAY ==
[2025-06-14 11:45] LABS: Alanine Aminotransferase 36 U/L (0-31); Anion Gap 12 (12-20); Aspartate Amino Transferase 31 U/L (5-31); Blood Urea Nitrogen 11 mg/dL (9-16); Calcium 9.3 mg/dL (8.4-10.2); Carbon Dioxide 27 mmol/L (22-29); Chloride 108 mmol/L (96-108); Cholesterol 216 mg/dL (<200); Estimated Glomerular Filt Rate > 60; HDL Cholesterol 63 mg/dL (>40); Potassium 3.9 mmol/L (3.3-5.1); Sodium 143 mmol/L (135-145); Triglycerides 112 mg/dL (<150)
[2025-06-14 12:05] LABS: Free T4 (Free Thyroxine) 1.20 ng/dL (0.71-1.85); Thyroid Stimulating Hormone 3.84 uIU/mL (0.32-4.0)
== END 2025-06-14 09:52 | disposition home or self-care (01) ==
LOC: HO.HMGCLDS 09:51
PROVIDERS: PCP Internal Medicine; Visit Provider Internal Medicine
DX: E03.9 Hypothyroidism, unspecified (principal); E78.5 Hyperlipidemia, unspecified; R73.01 Impaired fasting glucose
CPT/HCPCS: 36415; 80048; 80061; 83036; 84439; 84443; 84450; 84460